=== PATIENT | male | born 1970 | race African-American/Black ===

== ENCOUNTER 2016-08-28 21:57 | Emergency (ER) | payer MEDICAID ==
[~2016-08-28] VITALS: Ht 185.4 cm; Wt 113.0 kg
[~2016-08-28 21:57] MED LIST: ABILIFY; RISPERDAL; SEROQUEL; ZOLOFT
[2016-08-28] MEDS ORDERED: ONDANSETRON HCL 4MG/2ML VIAL IV STA (22:33)
[2016-08-28] MEDS ORDERED: FOLIC ACID 1 MG, THIAMINE HCL 100 MG, MVI, ADULT NO.1 10 ML in DEXTROSE 5% WATER 1,000 ML IV ONE ×4 (22:45)
[2016-08-28 23:03] LABS: BASOPHILS % 1.5 % (0.0-2.0); EOSINOPHILS % 1.2 % (0.0-5.0); HEMATOCRIT. 41.8 % (42.0-52.0); HEMOGLOBIN. 13.7 g/dL (14.0-18.0); LYMPHOCYTES % 42.1 % (20.0-50.0); MEAN CORPUSCULAR HEMOGLOBIN 30.7 pg (28.0-32.0); MEAN CORPUSCULAR HGB CONC 32.8 g/dL (31.0-37.0); MEAN CORPUSCULAR VOLUME 93.9 fL (80.0-94.0); MEAN PLATELET VOLUME 8.2 fl (7.4-10.4); MONOCYTES % 7.4 % (2.0-8.0); NEUTROPHILS % 47.8 % (40.0-76.0); PLATELET 209 x1000/uL (130-400); RED BLOOD CELL COUNT 4.46 mill/uL (4.7-6.1); RED CELL DISTRIBUTION WIDTH 14.2 % (11.6-14.6); WHITE BLOOD COUNT 5.5 x1000/uL (4.5-11.0)
[2016-08-28 23:08] LABS: CHLORIDE 107 mEq/L (98-107); INDEX HEMOLYSI 2 (1-3); INDEX ICTERIC 1 (1-4); INDEX LIPEMIC 1 (1-3)
[2016-08-28 23:17] LABS: ALANINE AMINOTRANSFERASE 48 IU/L (13-61); ALBUMIN 3.8 g/dL (3.4-5.0); ANION GAP 16; CALCIUM 8.6 mg/dL (8.5-10.1); CARBON DIOXIDE 24 mEq/L (21-32); ETHANOL BLOOD 287 mg/dL; LIPASE 146 IU/L (73-393); UREA NITROGEN BLOOD 7 mg/dL (7-21); eGFR > 60 mL/min (>60)
[2016-08-29] MEDS ORDERED: ONDANSETRON 4MG ODT PO ONE (05:45)
[2016-08-29] MEDS ORDERED: LORAZEPAM 1MG TABLET PO ONE (06:15)
[2016-08-29] MEDS ORDERED: MAGNESIUM/ALUMINUM HYDROXIDE/SIMETHICONE 30ML UDC PO STA (07:29)
[2016-08-29] MEDS ORDERED: FAMOTIDINE 20MG TABLET PO ONE (07:30)
[2016-08-29] MEDS ORDERED: FAMOTIDINE 20MG/2ML VIAL IV ONE (08:30)
[2016-08-29] MEDS ORDERED: ONDANSETRON HCL 4MG/2ML VIAL IV ONE (08:30)
[2016-08-29] MEDS ORDERED: METOCLOPRAMIDE HCL 10MG/2ML VIAL IV ONE (11:45)
[2016-08-29 12:10] VITALS: BP 160/90
== END 2016-08-29 12:24 | disposition home or self-care (01) ==
LOC: ER 21:58
DX: K29.20 Alcoholic gastritis without bleeding (principal); F10.129 Alcohol abuse with intoxication, unspecified; R45.851 Suicidal ideations; R11.2 Nausea with vomiting, unspecified; F20.9 Schizophrenia, unspecified; F31.9 Bipolar disorder, unspecified
CPT/HCPCS: 36415; 80053; 80307; 80329; 83690; 85025; 96374; 96375; 99285; G0482; J2405; J2765; J3411; J3490; J7070; Q0162; Z7610

== ENCOUNTER 2016-10-08 05:05 | Emergency (ER) | payer MEDICAID ==
[~2016-10-08] VITALS: Ht 170.2 cm; Wt 82.0 kg
[2016-10-08] MEDS ORDERED: ONDANSETRON HCL 4MG/2ML VIAL IV STA (05:27)
[2016-10-08] MEDS ORDERED: SODIUM CHLORIDE 0.9% 1,000 ML IV ONE (05:27)
[2016-10-08] MEDS ORDERED: FAMOTIDINE 20MG/2ML VIAL IV STA (05:27)
[2016-10-08 06:00] LABS: EOSINOPHILS % 0.8 % (0.0-5.0); HEMATOCRIT. 42.5 % (42.0-52.0); HEMOGLOBIN. 14.1 g/dL (14.0-18.0); LYMPHOCYTES % 26.1 % (20.0-50.0); MEAN CORPUSCULAR HEMOGLOBIN 30.5 pg (28.0-32.0); MEAN CORPUSCULAR HGB CONC 33.1 g/dL (31.0-37.0); MEAN CORPUSCULAR VOLUME 92.2 fL (80.0-94.0); MEAN PLATELET VOLUME 8.6 fl (7.4-10.4); MONOCYTES % 7.3 % (2.0-8.0); NEUTROPHILS % 64.8 % (40.0-76.0); PLATELET 162 x1000/uL (130-400); RED BLOOD CELL COUNT 4.61 mill/uL (4.7-6.1); RED CELL DISTRIBUTION WIDTH 14.7 % (11.6-14.6); WHITE BLOOD COUNT 4.8 x1000/uL (4.5-11.0)
[2016-10-08 06:04] LABS: PROTHROMBIN TIME 10.9 sec
[2016-10-08 06:09] LABS: ANION GAP 17; CALCIUM 8.5 mg/dL (8.5-10.1); CARBON DIOXIDE 26 mEq/L (21-32); CHLORIDE 105 mEq/L (98-107); UREA NITROGEN BLOOD 5 mg/dL (7-21); eGFR > 60 mL/min (>60)
[2016-10-08 06:10] LABS: ALANINE AMINOTRANSFERASE 94 IU/L (13-61); ALBUMIN 4.1 g/dL (3.4-5.0); ETHANOL BLOOD 221 mg/dL; INDEX HEMOLYSI 2 (1-3); INDEX ICTERIC 1 (1-4); INDEX LIPEMIC 1 (1-3); LIPASE 142 IU/L (73-393)
[2016-10-08 06:11] LABS: ADD RBC MORPHOLOGY YES; DIFFERENTIAL COMMENT 1
[2016-10-08] MEDS ORDERED: KETOROLAC 60MG/2ML VIAL IM ONE (06:30)
[2016-10-08] MEDS ORDERED: ONDANSETRON 4MG ODT PO ONE (06:30)
[2016-10-08 06:37] VITALS: BP 162/81
[2016-10-08 07:39] LABS: PLATELET ESTIMATE NORMAL
== END 2016-10-08 07:26 | disposition home or self-care (01) ==
LOC: ER 05:06
DX: F10.129 Alcohol abuse with intoxication, unspecified (principal); R10.13 Epigastric pain; R11.2 Nausea with vomiting, unspecified; I10 Essential (primary) hypertension; F31.9 Bipolar disorder, unspecified; F20.9 Schizophrenia, unspecified; Z86.19 Personal history of other infectious and parasitic diseases
CPT/HCPCS: 36415; 80053; 83690; 85025; 85610; 96372; 99284; G0482; J1885; J2405; J3490; J7030; Z7610

== ENCOUNTER 2017-03-30 08:46 | Emergency (ER) | payer MEDICAID ==
[~2017-03-30] VITALS: Ht 180.3 cm; Wt 89.0 kg
[2017-03-30] MEDS ORDERED: KETOROLAC 30MG/ML VIAL IV STA (08:53)
[2017-03-30] MEDS ORDERED: SODIUM CHLORIDE 0.9% 1,000 ML IV ONE (08:53)
[2017-03-30] MEDS ORDERED: FAMOTIDINE 20MG/2ML VIAL IV STA (08:53)
[2017-03-30] MEDS ORDERED: ONDANSETRON HCL 4MG/2ML VIAL IV STA (08:53)
[2017-03-30 09:25] LABS: BASOPHILS % 0.8 % (0.0-2.0); EOSINOPHILS % 0.7 % (0.0-5.0); HEMATOCRIT. 42.1 % (42.0-52.0); HEMOGLOBIN. 13.8 g/dL (14.0-18.0); LYMPHOCYTES % 24.7 % (20.0-50.0); MEAN CORPUSCULAR HEMOGLOBIN 30.2 pg (28.0-32.0); MEAN CORPUSCULAR VOLUME 92.2 fL (80.0-94.0); MEAN PLATELET VOLUME 8.1 fl (7.4-10.4); MONOCYTES % 5.6 % (2.0-8.0); NEUTROPHILS % 68.2 % (40.0-76.0); PLATELET 219 x1000/uL (130-400); RED BLOOD CELL COUNT 4.56 mill/uL (4.7-6.1); RED CELL DISTRIBUTION WIDTH 15.4 % (11.6-14.6)
[2017-03-30 09:33] LABS: INR 1.1; PROTHROMBIN TIME 11.5 sec (9.4-11.6)
[2017-03-30 09:38] LABS: CARBON DIOXIDE 24 mEq/L (21-32); CHLORIDE 107 mEq/L (98-107); ETHANOL BLOOD 148 mg/dL
[2017-03-30 13:31] LABS: *AMPHETAMINES SCREEN URINE NEGATIVE (NEGATIVE); *BARBITURATES SCREEN URINE NEGATIVE (NEGATIVE); *BENZODIAZEPINES SCREEN URINE NEGATIVE (NEGATIVE); *COCAINE SCREEN URINE NEGATIVE (NEGATIVE); CANNABINOID URINE SCREEN NEGATIVE (NEGATIVE); METHADONE URINE SCREEN NEGATIVE (NEGATIVE); OPIATES URINE SCREEN NEGATIVE (NEGATIVE); PHENCYCLIDINE URINE SCREEN NEGATIVE (NEGATIVE)
[2017-03-30 13:48] VITALS: BP 157/96
== END 2017-03-30 15:10 | disposition home or self-care (01) ==
LOC: ER 08:53
DX: K29.20 Alcoholic gastritis without bleeding (principal); R45.851 Suicidal ideations
CPT/HCPCS: 36415; 74176; 80053; 80305; 80307; 80329; 83690; 85025; 85610; 96361; 96374; 96375; 99285; G0482; J1885; J2405; J3490; J7030; Z7610

== ENCOUNTER 2017-05-19 04:18 | Emergency (ER) | payer MEDICAID ==
[~2017-05-19] VITALS: Ht 177.8 cm; Wt 75.0 kg
[2017-05-19] MEDS ORDERED: ONDANSETRON HCL 4MG/2ML VIAL IV ONE (05:00)
[2017-05-19 05:37] LABS: BASOPHILS % 0.8 % (0.0-2.0); EOSINOPHILS % 1.3 % (0.0-5.0); HEMATOCRIT. 41.7 % (42.0-52.0); LYMPHOCYTES % 25.2 % (20.0-50.0); MEAN CORPUSCULAR HEMOGLOBIN 31.4 pg (28.0-32.0); MEAN CORPUSCULAR VOLUME 93.2 fL (80.0-94.0); MEAN PLATELET VOLUME 8.1 fl (7.4-10.4); MONOCYTES % 8.5 % (2.0-8.0); NEUTROPHILS % 64.2 % (40.0-76.0); PLATELET 220 x1000/uL (130-400); RED BLOOD CELL COUNT 4.47 mill/uL (4.7-6.1)
[2017-05-19 05:47] LABS: INR 1.1; PROTHROMBIN TIME 11.3 sec (9.4-11.6)
[2017-05-19 05:51] LABS: CARBON DIOXIDE 26 mEq/L (21-32); CHLORIDE 108 mEq/L (98-107); ETHANOL BLOOD 158 mg/dL
[2017-05-19 06:01] VITALS: BP 168/88
== END 2017-05-19 06:32 | disposition home or self-care (01) ==
LOC: ER 04:18
DX: F10.129 Alcohol abuse with intoxication, unspecified (principal); Y90.6 Blood alcohol level of 120-199 mg/100 ml
CPT/HCPCS: 36415; 80053; 83690; 85025; 85610; 96374; 99284; G0482; J2405; Z7610

== ENCOUNTER 2018-05-28 19:47 | Emergency (ER) | payer MEDICAID ==
[~2018-05-28] VITALS: Ht 185.4 cm; Wt 100.0 kg
[2018-05-28 19:53] VITALS: BP 134/76
== END 2018-05-28 20:50 | disposition left against medical advice (07) ==
LOC: ER 19:55
DX: Z53.21 Procedure and treatment not carried out due to patient leaving prior to being seen by health care provider (principal)

== ENCOUNTER 2018-05-28 22:31 | Emergency (ER) | payer MEDICAID ==
[~2018-05-28] VITALS: Ht 177.8 cm; Wt 100.0 kg
[2018-05-29] MEDS ORDERED: ONDANSETRON HCL 4MG/2ML INJ IV STA (06:55)
[2018-05-29] MEDS ORDERED: MORPHINE SULFATE 4 MG/ML CPJ (NOT FOR IM USE) IV STA (06:55)
[2018-05-29] MEDS ORDERED: SODIUM CHLORIDE 0.9% 1,000 ML IV ONE (10:16)
[2018-05-29 10:42] LABS: CLARITY URINE CLEAR (CLEAR); COLOR URINE YELLOW (YELLOW); KETONES URINE TRACE (NEGATIVE); LEUKOCYTE ESTERASE URINE NEGATIVE (NEGATIVE); NITRITE URINE NEGATIVE (NEGATIVE); OCCULT BLOOD URINE NEGATIVE (NEGATIVE); PROTEIN URINE NEGATIVE (NEGATIVE); SPECIFIC GRAVITY URINE 1.021 (1.005-1.030); UROBILINOGEN URINE 0.2 E.U./dL (0.2-1.0)
[2018-05-29] MEDS ORDERED: ONDANSETRON HCL 4MG/2ML INJ ONE (10:42)
[2018-05-29 11:24] LABS: *AMPHETAMINES SCREEN URINE NEGATIVE (NEGATIVE); *BARBITURATES SCREEN URINE NEGATIVE (NEGATIVE); *BENZODIAZEPINES SCREEN URINE NEGATIVE (NEGATIVE); *COCAINE SCREEN URINE NEGATIVE (NEGATIVE); METHADONE URINE SCREEN NEGATIVE (NEGATIVE); OPIATES URINE SCREEN NEGATIVE (NEGATIVE)
[2018-05-29 11:25] LABS: CANNABINOID URINE SCREEN NEGATIVE (NEGATIVE); PHENCYCLIDINE URINE SCREEN NEGATIVE (NEGATIVE)
[2018-05-29] MEDS ORDERED: MORPHINE SULFATE 4 MG/ML CPJ (NOT FOR IM USE) IV ONE (12:00)
[2018-05-29] MEDS ORDERED: MORPHINE SULFATE 10 MG/ML CPJ ONE (12:05)
[2018-05-29 12:31] LABS: BASOPHILS % 0.9 % (0.0-2.0); EOSINOPHILS % 2.5 % (0.0-5.0); HEMATOCRIT. 45.7 % (42.0-52.0); HEMOGLOBIN. 14.9 g/dL (14.0-18.0); LYMPHOCYTES % 15.6 % (20.0-50.0); MEAN CORPUSCULAR HEMOGLOBIN 30.6 pg (28.0-32.0); MEAN CORPUSCULAR VOLUME 94.1 fL (80.0-94.0); MEAN PLATELET VOLUME 8.9 fl (7.4-10.4); MONOCYTES % 5.8 % (2.0-8.0); NEUTROPHILS % 75.2 % (40.0-76.0); PLATELET 202 x1000/uL (130-400); RED BLOOD CELL COUNT 4.86 mill/uL (4.7-6.1); RED CELL DISTRIBUTION WIDTH 14.8 % (11.6-14.6)
[2018-05-29 12:39] LABS: CHLORIDE 115 mEq/L (98-107)
[2018-05-29 14:00] VITALS: BP 123/55
== END 2018-05-29 14:00 | disposition home or self-care (01) ==
LOC: ER 22:31
DX: R10.9 Unspecified abdominal pain (principal); R11.2 Nausea with vomiting, unspecified; R51 Headache; I10 Essential (primary) hypertension; F17.200 Nicotine dependence, unspecified, uncomplicated; Z79.899 Other long term (current) drug therapy
CPT/HCPCS: 36415; 74176; 80053; 80305; 81003; 83690; 85025; 96374; 96375; 99284; J2270; J2405; J7030

== ENCOUNTER 2018-06-15 21:58 | Emergency (ER) | payer MEDICAID ==
[~2018-06-15] VITALS: Ht 182.9 cm; Wt 86.0 kg
[2018-06-16 02:10] VITALS: BP 104/74
== END 2018-06-16 04:20 | disposition left against medical advice (07) ==
LOC: ER 21:58
DX: Z53.21 Procedure and treatment not carried out due to patient leaving prior to being seen by health care provider (principal)

== ENCOUNTER 2018-09-20 21:15 | Emergency (ER) | payer MEDICAID ==
[~2018-09-20] VITALS: Ht 185.4 cm; Wt 94.0 kg
[2018-09-20] MEDS ORDERED: SODIUM CHLORIDE 0.9% 1,000 ML IV ONE (22:49)
[2018-09-20] MEDS ORDERED: IBUPROFEN 600MG TABLET PO ONE (23:00)
[2018-09-20 23:23] LABS: BASOPHILS % 1.4 % (0.0-2.0); EOSINOPHILS % 1.5 % (0.0-5.0); HEMOGLOBIN. 12.7 g/dL (14.0-18.0); LYMPHOCYTES % 41.1 % (20.0-50.0); MEAN CORPUSCULAR VOLUME 92.7 fL (80.0-94.0); MEAN PLATELET VOLUME 7.7 fl (7.4-10.4); MONOCYTES % 7.2 % (2.0-8.0); NEUTROPHILS % 48.8 % (40.0-76.0); PLATELET 211 x1000/uL (130-400); RED CELL DISTRIBUTION WIDTH 15.6 % (11.6-14.6)
[2018-09-20 23:29] LABS: CHLORIDE 111 mEq/L (98-107); PROTHROMBIN TIME 10.1 sec (9.6-11.0)
[2018-09-20 23:32] LABS: ETHANOL BLOOD 264 mg/dL
[2018-09-20 23:42] LABS: CLARITY URINE CLEAR (CLEAR); COLOR URINE YELLOW (YELLOW); KETONES URINE NEGATIVE (NEGATIVE); LEUKOCYTE ESTERASE URINE NEGATIVE (NEGATIVE); NITRITE URINE NEGATIVE (NEGATIVE); OCCULT BLOOD URINE NEGATIVE (NEGATIVE); PH URINE 6.5 (4.5-8.0); PROTEIN URINE NEGATIVE (NEGATIVE); SPECIFIC GRAVITY URINE 1.017 (1.005-1.030)
[2018-09-20 23:54] LABS: *AMPHETAMINES SCREEN URINE NEGATIVE (NEGATIVE); *BARBITURATES SCREEN URINE NEGATIVE (NEGATIVE); *BENZODIAZEPINES SCREEN URINE PRESUMTIVE POSITIVE (NEGATIVE); *COCAINE SCREEN URINE NEGATIVE (NEGATIVE)
[2018-09-20 23:55] LABS: CANNABINOID URINE SCREEN NEGATIVE (NEGATIVE); METHADONE URINE SCREEN NEGATIVE (NEGATIVE); OPIATES URINE SCREEN NEGATIVE (NEGATIVE); PHENCYCLIDINE URINE SCREEN NEGATIVE (NEGATIVE)
[2018-09-21] MEDS ORDERED: SODIUM CHLORIDE 0.9% 1,000 ML IV ONE ×2 (05:44→08:30)
[2018-09-21] MEDS ORDERED: ONDANSETRON HCL 4MG/2ML INJ IV ONE (08:30)
[2018-09-21] MEDS ORDERED: LORAZEPAM 2MG/ML CPJ IV ONE (08:30)
[2018-09-21] MEDS ORDERED: CHLORDIAZEPOXIDE 25MG CAPSULE PO ONE (09:15)
[2018-09-21 11:32] VITALS: BP 157/106
== END 2018-09-21 11:36 | disposition home or self-care (01) ==
LOC: ER 21:39
DX: F10.129 Alcohol abuse with intoxication, unspecified (principal); Y90.8 Blood alcohol level of 240 mg/100 ml or more; E11.9 Type 2 diabetes mellitus without complications; F17.200 Nicotine dependence, unspecified, uncomplicated
CPT/HCPCS: 36415; 74176; 80053; 80305; 80320; 81003; 83690; 85025; 85610; 96374; 96375; 99284; J2060; J2405; J7030; Z7610; G0480

== ENCOUNTER 2018-09-22 03:07 | Emergency (ER) | payer MEDICAID ==
[~2018-09-22] VITALS: Ht 182.9 cm; Wt 91.0 kg
[2018-09-22] MEDS ORDERED: KETOROLAC 30MG/ML VIAL IV STA (06:46)
[2018-09-22 07:20] LABS: BASOPHILS % 0.8 % (0.0-2.0); HEMATOCRIT. 41.1 % (42.0-52.0); HEMOGLOBIN. 13.4 g/dL (14.0-18.0); LYMPHOCYTES % 51.7 % (20.0-50.0); MEAN CORPUSCULAR HEMOGLOBIN 30.9 pg (28.0-32.0); MEAN PLATELET VOLUME 8.1 fl (7.4-10.4); MONOCYTES % 8.5 % (2.0-8.0); PLATELET 162 x1000/uL (130-400); RED BLOOD CELL COUNT 4.32 mill/uL (4.7-6.1); RED CELL DISTRIBUTION WIDTH 15.9 % (11.6-14.6)
[2018-09-22 07:28] LABS: CLARITY URINE CLEAR (CLEAR); COLOR URINE YELLOW (YELLOW); KETONES URINE NEGATIVE (NEGATIVE); LEUKOCYTE ESTERASE URINE NEGATIVE (NEGATIVE); NITRITE URINE NEGATIVE (NEGATIVE); OCCULT BLOOD URINE NEGATIVE (NEGATIVE); PH URINE 5.5 (4.5-8.0); PROTEIN URINE NEGATIVE (NEGATIVE); SPECIFIC GRAVITY URINE 1.015 (1.005-1.030); UROBILINOGEN URINE 0.2 E.U./dL (0.2-1.0)
[2018-09-22 07:30] LABS: PROTHROMBIN TIME 10.5 sec (9.6-11.0)
[2018-09-22 07:59] LABS: CHLORIDE 114 mEq/L (98-107)
[2018-09-22 08:22] LABS: ETHANOL BLOOD 284 mg/dL
[2018-09-22 09:00] VITALS: BP 105/61
== END 2018-09-22 10:49 | disposition home or self-care (01) ==
LOC: ER 03:07
DX: F10.129 Alcohol abuse with intoxication, unspecified (principal); Y90.8 Blood alcohol level of 240 mg/100 ml or more; R10.0 Acute abdomen
CPT/HCPCS: 36415; 80053; 80320; 81003; 83690; 85025; 85610; 96374; 99283; J1885; G0480

== ENCOUNTER 2018-09-28 23:35 | Emergency (ER) | payer MEDICAID ==
[~2018-09-28] VITALS: Ht 182.9 cm; Wt 95.0 kg
[2018-09-28 23:40] VITALS: BP 158/92
== END 2018-09-29 02:55 | disposition left against medical advice (07) ==
LOC: ER 23:35
DX: R10.9 Unspecified abdominal pain (principal); Z53.21 Procedure and treatment not carried out due to patient leaving prior to being seen by health care provider

== ENCOUNTER 2018-09-29 20:59 | Emergency (ER) | payer MEDICAID ==
[~2018-09-29] VITALS: Ht 185.4 cm; Wt 95.0 kg
[2018-09-29 21:14] VITALS: BP 148/89
== END 2018-09-30 00:01 | disposition left against medical advice (07) ==
LOC: ER 20:59
DX: R10.9 Unspecified abdominal pain (principal); Z53.21 Procedure and treatment not carried out due to patient leaving prior to being seen by health care provider

== ENCOUNTER 2018-09-30 00:04 | Emergency (ER) | payer MEDICAID ==
[~2018-09-30] VITALS: Ht 170.2 cm; Wt 81.0 kg
[2018-09-30 00:14] VITALS: BP 186/101
== END 2018-09-30 06:00 | disposition left against medical advice (07) ==
LOC: ER 00:04
DX: R10.9 Unspecified abdominal pain (principal); Z53.21 Procedure and treatment not carried out due to patient leaving prior to being seen by health care provider

== ENCOUNTER 2018-10-02 23:55 | Emergency (ER) | payer MEDICAID ==
[~2018-10-02] VITALS: Ht 175.3 cm; Wt 86.0 kg
[2018-10-03 00:15] VITALS: BP 166/111
== END 2018-10-03 02:41 | disposition left against medical advice (07) ==
LOC: ER 23:55
DX: R10.9 Unspecified abdominal pain (principal); Z53.21 Procedure and treatment not carried out due to patient leaving prior to being seen by health care provider

== ENCOUNTER 2018-11-08 23:56 | Emergency (ER) | payer MEDICAID ==
[~2018-11-08] VITALS: Ht 185.4 cm; Wt 86.0 kg
[2018-11-09 00:03] VITALS: BP 107/44
== END 2018-11-09 00:15 | disposition left against medical advice (07) ==
LOC: ER 23:56
DX: R10.9 Unspecified abdominal pain (principal); Z53.21 Procedure and treatment not carried out due to patient leaving prior to being seen by health care provider

== ENCOUNTER 2018-11-09 21:16 | Emergency (ER) | payer MEDICAID ==
[~2018-11-09] VITALS: Ht 175.3 cm; Wt 82.0 kg
[2018-11-09 21:23] VITALS: BP 126/84
== END 2018-11-09 22:30 | disposition left against medical advice (07) ==
LOC: ER 21:16
DX: Z53.21 Procedure and treatment not carried out due to patient leaving prior to being seen by health care provider (principal)

== ENCOUNTER 2018-12-04 00:17 | Emergency (ER) | payer MEDICAID ==
[~2018-12-04] VITALS: Ht 180.3 cm; Wt 80.0 kg
[2018-12-04] MEDS ORDERED: ONDANSETRON HCL 4MG/2ML INJ IV STA ×2 (04:15→06:27)
[2018-12-04] MEDS ORDERED: FAMOTIDINE 20MG/2ML VIAL IV STA (04:15)
[2018-12-04] MEDS ORDERED: SODIUM CHLORIDE 0.9% 1,000 ML IV ONE ×2 (04:15)
[2018-12-04] MEDS ORDERED: KETOROLAC 30MG/ML VIAL IV STA (04:15)
[2018-12-04 04:57] LABS: BASOPHILS % 0.5 % (0.0-2.0); EOSINOPHILS % 1.7 % (0.0-5.0); HEMATOCRIT. 39.6 % (42.0-52.0); HEMOGLOBIN. 13.2 g/dL (14.0-18.0); LYMPHOCYTES % 45.8 % (20.0-50.0); MEAN CORPUSCULAR HEMOGLOBIN 31.8 pg (28.0-32.0); MEAN CORPUSCULAR VOLUME 95.1 fL (80.0-94.0); MEAN PLATELET VOLUME 7.6 fl (7.4-10.4); MONOCYTES % 9.2 % (2.0-8.0); NEUTROPHILS % 42.8 % (40.0-76.0); PLATELET 221 x1000/uL (130-400); RED BLOOD CELL COUNT 4.17 mill/uL (4.7-6.1); RED CELL DISTRIBUTION WIDTH 16.6 % (11.6-14.6)
[2018-12-04 05:08] LABS: CHLORIDE 110 mEq/L (98-107)
[2018-12-04 05:12] LABS: ETHANOL BLOOD 278 mg/dL
[2018-12-04] MEDS ORDERED: ACETAMINOPHEN 325MG TABLET PO STA (06:27)
[2018-12-04 09:15] VITALS: BP 127/65
== END 2018-12-04 09:38 | disposition home or self-care (01) ==
LOC: ER 00:39
DX: R10.84 Generalized abdominal pain (principal); F10.229 Alcohol dependence with intoxication, unspecified; Y90.8 Blood alcohol level of 240 mg/100 ml or more
CPT/HCPCS: 36415; 80053; 80320; 83690; 85025; 96361; 96374; 96375; 96376; 99283; J1885; J2405; J3490; J7030; Z7610; G0480

== ENCOUNTER 2018-12-13 08:15 | Emergency (ER) | payer MEDICAID ==
[~2018-12-13] VITALS: Ht 175.3 cm; Wt 82.0 kg
[2018-12-13] MEDS ORDERED: FAMOTIDINE 20MG/2ML VIAL IV STA (08:24)
[2018-12-13] MEDS ORDERED: ONDANSETRON HCL 4MG/2ML INJ IV STA (08:24)
[2018-12-13] MEDS ORDERED: SODIUM CHLORIDE 0.9% 1,000 ML IV ONE (08:24)
[2018-12-13 08:51] LABS: BASOPHILS % 0.9 % (0.0-2.0); EOSINOPHILS % 0.7 % (0.0-5.0); HEMATOCRIT. 37.4 % (42.0-52.0); HEMOGLOBIN. 12.5 g/dL (14.0-18.0); LYMPHOCYTES % 27.8 % (20.0-50.0); MEAN CORPUSCULAR HEMOGLOBIN 31.7 pg (28.0-32.0); MEAN CORPUSCULAR VOLUME 94.8 fL (80.0-94.0); MEAN PLATELET VOLUME 7.6 fl (7.4-10.4); MONOCYTES % 13.5 % (2.0-8.0); NEUTROPHILS % 57.1 % (40.0-76.0); PLATELET 160 x1000/uL (130-400); RED BLOOD CELL COUNT 3.94 mill/uL (4.7-6.1); RED CELL DISTRIBUTION WIDTH 16.3 % (11.6-14.6)
[2018-12-13 08:54] LABS: CHLORIDE 108 mEq/L (98-107)
[2018-12-13 08:58] LABS: ETHANOL BLOOD 139 mg/dL
[2018-12-13 10:46] LABS: CLARITY URINE CLEAR (CLEAR); COLOR URINE YELLOW (YELLOW); KETONES URINE 1+ (NEGATIVE); LEUKOCYTE ESTERASE URINE NEGATIVE (NEGATIVE); NITRITE URINE NEGATIVE (NEGATIVE); OCCULT BLOOD URINE NEGATIVE (NEGATIVE); PH URINE 5.5 (4.5-8.0); PROTEIN URINE 1+ (NEGATIVE); SPECIFIC GRAVITY URINE 1.031 (1.005-1.030)
[2018-12-13 11:09] LABS: *COCAINE SCREEN URINE NEGATIVE (NEGATIVE); METHADONE URINE SCREEN NEGATIVE (NEGATIVE); OPIATES URINE SCREEN NEGATIVE (NEGATIVE)
[2018-12-13 11:10] LABS: *AMPHETAMINES SCREEN URINE NEGATIVE (NEGATIVE); *BARBITURATES SCREEN URINE NEGATIVE (NEGATIVE); *BENZODIAZEPINES SCREEN URINE PRESUMTIVE POSITIVE (NEGATIVE); CANNABINOID URINE SCREEN NEGATIVE (NEGATIVE); PHENCYCLIDINE URINE SCREEN NEGATIVE (NEGATIVE)
[2018-12-13 11:44] VITALS: BP 150/90
== END 2018-12-13 11:47 | disposition home or self-care (01) ==
LOC: ER 08:40
DX: R10.0 Acute abdomen (principal); R11.10 Vomiting, unspecified; R03.0 Elevated blood-pressure reading, without diagnosis of hypertension; F20.9 Schizophrenia, unspecified
CPT/HCPCS: 36415; 80053; 80305; 80307; 80320; 80329; 81003; 83690; 85025; 85610; 96374; 96375; 99283; J2405; J3490; J7030; Z7610; G0480

== ENCOUNTER 2019-01-20 22:48 | Emergency (ER) | payer MEDICAID | END 2019-01-20 23:05 | disposition left against medical advice (07) | LOC: ER 22:48 | DX: R10.9 Unspecified abdominal pain (principal); F10.129 Alcohol abuse with intoxication, unspecified; Y90.9 Presence of alcohol in blood, level not specified; Z53.21 Procedure and treatment not carried out due to patient leaving prior to being seen by health care provider ==

== ENCOUNTER 2019-02-01 21:35 | Emergency (ER) | payer MEDICAID | END 2019-02-01 21:44 | disposition left against medical advice (07) | LOC: ER 21:35 | DX: R10.9 Unspecified abdominal pain (principal); Z53.21 Procedure and treatment not carried out due to patient leaving prior to being seen by health care provider ==

== ENCOUNTER 2019-02-02 21:15 | Emergency (ER) | payer MEDICAID | END 2019-02-02 21:54 | disposition left against medical advice (07) | LOC: ER 21:15 | DX: Z53.21 Procedure and treatment not carried out due to patient leaving prior to being seen by health care provider (principal) ==

== ENCOUNTER 2019-02-07 22:26 | Emergency (ER) | payer MEDICAID ==
[~2019-02-07] VITALS: Ht 172.7 cm; Wt 82.0 kg
[2019-02-07 22:30] VITALS: BP 141/98
== END 2019-02-08 02:30 | disposition left against medical advice (07) ==
LOC: ER 22:26
DX: F10.10 Alcohol abuse, uncomplicated (principal); Z53.21 Procedure and treatment not carried out due to patient leaving prior to being seen by health care provider

== ENCOUNTER 2019-02-09 00:22 | Emergency (ER) | payer MEDICAID ==
[~2019-02-09] VITALS: Ht 182.9 cm; Wt 91.0 kg
[2019-02-09 00:24] VITALS: BP 160/79
== END 2019-02-09 00:45 | disposition left against medical advice (07) ==
LOC: ER 00:22
DX: Z53.21 Procedure and treatment not carried out due to patient leaving prior to being seen by health care provider (principal)

== ENCOUNTER 2019-03-09 23:03 | Emergency (ER) | payer MEDICAID ==
[~2019-03-09] VITALS: Ht 172.7 cm; Wt 86.0 kg
[2019-03-10] MEDS ORDERED: FAMOTIDINE 20MG/2ML VIAL IV ONE (04:00)
[2019-03-10 04:23] LABS: CHLORIDE 109 mEq/L (98-107)
[2019-03-10 04:27] LABS: ETHANOL BLOOD 261 mg/dL
[2019-03-10 04:29] LABS: BASOPHILS % 1.3 % (0.0-2.0); EOSINOPHILS % 2.5 % (0.0-5.0); HEMATOCRIT. 41.2 % (42.0-52.0); HEMOGLOBIN. 13.6 g/dL (14.0-18.0); LYMPHOCYTES % 46.2 % (20.0-50.0); MEAN CORPUSCULAR HEMOGLOBIN 31.8 pg (28.0-32.0); MEAN PLATELET VOLUME 8.2 fl (7.4-10.4); MONOCYTES % 11.9 % (2.0-8.0); NEUTROPHILS % 38.1 % (40.0-76.0); PLATELET 183 x1000/uL (130-400); RED CELL DISTRIBUTION WIDTH 15.3 % (11.6-14.6)
[2019-03-10 04:35] LABS: PROTHROMBIN TIME 10.7 sec (9.6-11.0)
[2019-03-10] MEDS ORDERED: FAMOTIDINE 20MG TABLET PO ONE (06:30)
[2019-03-10] MEDS ORDERED: CHLORDIAZEPOXIDE 25MG CAPSULE PO ONE (08:15)
[2019-03-10 08:45] VITALS: BP 145/83
== END 2019-03-10 08:45 | disposition home or self-care (01) ==
LOC: ER 23:19
DX: K29.20 Alcoholic gastritis without bleeding (principal); F10.10 Alcohol abuse, uncomplicated; I10 Essential (primary) hypertension; Z79.899 Other long term (current) drug therapy; Y90.9 Presence of alcohol in blood, level not specified
CPT/HCPCS: 36415; 80320; 99283; G0480

== ENCOUNTER 2019-05-28 00:27 | Inpatient (IN) | payer MEDICAID ==
[~2019-05-28] VITALS: Ht 182.9 cm; Wt 109.3 kg
[2019-05-28] MEDS ORDERED: ONDANSETRON HCL 4MG/2ML INJ IV STA (01:15)
[2019-05-28] MEDS ORDERED: SODIUM CHLORIDE 0.9% 1,000 ML IV ONE (01:15)
[2019-05-28] MEDS ORDERED: KETOROLAC 30MG/ML VIAL IV STA (02:31)
[2019-05-28 03:27] LABS: CLARITY URINE CLEAR (CLEAR); COLOR URINE YELLOW (YELLOW); KETONES URINE NEGATIVE (NEGATIVE); LEUKOCYTE ESTERASE URINE NEGATIVE (NEGATIVE); NITRITE URINE NEGATIVE (NEGATIVE); OCCULT BLOOD URINE NEGATIVE (NEGATIVE); PROTEIN URINE NEGATIVE (NEGATIVE); SPECIFIC GRAVITY URINE 1.009 (1.005-1.030); UROBILINOGEN URINE 0.2 E.U./dL (0.2-1.0)
[2019-05-28 04:02] LABS: *AMPHETAMINES SCREEN URINE NEGATIVE (NEGATIVE); *BARBITURATES SCREEN URINE NEGATIVE (NEGATIVE); *BENZODIAZEPINES SCREEN URINE NEGATIVE (NEGATIVE); *COCAINE SCREEN URINE NEGATIVE (NEGATIVE); METHADONE URINE SCREEN NEGATIVE (NEGATIVE); OPIATES URINE SCREEN NEGATIVE (NEGATIVE)
[2019-05-28 04:03] LABS: CANNABINOID URINE SCREEN NEGATIVE (NEGATIVE); PHENCYCLIDINE URINE SCREEN NEGATIVE (NEGATIVE)
[2019-05-28 04:10] LABS: BASOPHILS % 0.6 % (0.0-2.0); EOSINOPHILS % 0.7 % (0.0-5.0); HEMOGLOBIN. 14.5 g/dL (14.0-18.0); LYMPHOCYTES % 31.9 % (20.0-50.0); MEAN CORPUSCULAR VOLUME 94.1 fL (80.0-94.0); MEAN PLATELET VOLUME 8.8 fl (7.4-10.4); MONOCYTES % 5.3 % (2.0-8.0); NEUTROPHILS % 61.5 % (40.0-76.0); PLATELET 238 x1000/uL (130-400); RED BLOOD CELL COUNT 4.68 mill/uL (4.7-6.1); RED CELL DISTRIBUTION WIDTH 14.4 % (11.6-14.6)
[2019-05-28 04:13] LABS: CHLORIDE 112 mEq/L (98-107); INR 1.1; PROTHROMBIN TIME 11.5 sec (9.6-11.0)
[2019-05-28] MEDS ORDERED: METRONIDAZOLE 500 MG PREMIX 100 ML IV ONE (05:15)
[2019-05-28] MEDS ORDERED: PIPERACILLIN/TAZ 3.375G PREMIX 50 ML IV ONE (05:15)
[2019-05-28] MEDS ORDERED: SODIUM CHLORIDE 0.9% 1000ML BAG (SEPSIS BOLUS) IV ONE (05:15)
[2019-05-28] MEDS ORDERED: MORPHINE SULFATE 4 MG/ML CPJ (NOT FOR IM USE) IV ONE (06:00)
[2019-05-28] MEDS ORDERED: ONDANSETRON HCL 4MG/2ML INJ IV ONE (06:00)
[2019-05-28] MEDS ORDERED: ONDANSETRON HCL 4MG/2ML INJ IV PRN (10:45)
[2019-05-28] MEDS ORDERED: LORAZEPAM 2MG/ML CPJ IV PRN (10:45)
[2019-05-28] MEDS ORDERED: DIPHENHYDRAMINE 50MG/ML VIAL IV PRN (10:45)
[2019-05-28] MEDS ORDERED: ACETAMINOPHEN 650MG SUPP PR PRN (10:45)
[2019-05-28] MEDS ORDERED: IPRATROPIUM/ALBUTEROL 0.5-3(2.5)MG/3ML NEB NEB PRN (10:45)
[2019-05-28] MEDS: DEXT 5%/0.45% NACL KCL 10MEQ/L 1,000 ML IV SCH ×2 (11:54→21:56)
[2019-05-28] MEDS: FAMOTIDINE 20MG/2ML VIAL IV SCH (11:55)
[2019-05-28] MEDS: MORPHINE SULFATE 2 MG/ML CPJ (NOT FOR IM USE) IV PRN ×3 (11:55→21:56)
[2019-05-28] MEDS ORDERED: POTASSIUM CHLORIDE INJ 40 MEQ in DEXT 5% WATER 250 ML IV SCH (12:00)
[2019-05-28] MEDS ORDERED: PIPERACILLIN/TAZOBACTAM 3.375 G in DEXT 5% WATER 100 ML IV SCH (12:00)
[2019-05-28] MEDS ORDERED: CHLORDIAZEPOXIDE 25MG CAPSULE PO PRN (15:15)
[2019-05-28 16:45] LABS: HEPATITIS B SURFACE ANTIGEN NEGATIVE
[2019-05-28 16:57] VITALS: BP 152/92
[2019-05-28] MEDS ORDERED: SERT100T MT (17:03)
[2019-05-28] MEDS ORDERED: QUET300T2 PO (17:03)
[2019-05-28 17:15] LABS: HEPATITIS A AB IGM NEGATIVE (NEGATIVE)
[2019-05-28 17:30] VITALS: BP 152/92
[2019-05-28] MEDS: MULTIVITAMINS,THER W-MINERALS TABLET PO SCH (17:35)
[2019-05-28] MEDS: THIAMINE HCL 100MG TABLET PO SCH (17:35)
[2019-05-28] MEDS: FOLIC ACID 1MG TABLET PO SCH (17:35)
[2019-05-28 20:00] VITALS: BP 161/80
[2019-05-28] MEDS: PIPERACILLIN/TAZOBACTAM 3.375 G in DEXT 5% WATER 100 ML IV SCH (21:08)
[2019-05-28] MEDS: QUETIAPINE FUMARATE 50MG TABLET PO SCH (22:50)
[2019-05-29] VITALS: BP 148/101
[2019-05-29] MEDS: PIPERACILLIN/TAZOBACTAM 3.375 G in DEXT 5% WATER 100 ML IV SCH ×4 (03:36→20:04)
[2019-05-29 04:00] VITALS: BP 143/87
[2019-05-29] MEDS: MORPHINE SULFATE 2 MG/ML CPJ (NOT FOR IM USE) IV PRN ×3 (06:46→20:04)
[2019-05-29 07:07] LABS: BASOPHILS % 0.7 % (0.0-2.0); EOSINOPHILS % 3.3 % (0.0-5.0); HEMATOCRIT. 41.2 % (42.0-52.0); HEMOGLOBIN. 13.6 g/dL (14.0-18.0); LYMPHOCYTES % 33.3 % (20.0-50.0); MEAN CORPUSCULAR HEMOGLOBIN 30.8 pg (28.0-32.0); MEAN CORPUSCULAR VOLUME 93.5 fL (80.0-94.0); MEAN PLATELET VOLUME 8.8 fl (7.4-10.4); MONOCYTES % 9.1 % (2.0-8.0); NEUTROPHILS % 53.6 % (40.0-76.0); PLATELET 212 x1000/uL (130-400); RED BLOOD CELL COUNT 4.41 mill/uL (4.7-6.1); RED CELL DISTRIBUTION WIDTH 14.1 % (11.6-14.6)
[2019-05-29 07:18] LABS: CHLORIDE 108 mEq/L (98-107)
[2019-05-29 07:30] LABS: HDL CHOLESTEROL 46 mg/dL (40-59); LDL CHOLESTEROL 104 mg/dL (5-100); T4 FREE 0.71 ng/dL (0.76-1.46)
[2019-05-29 08:00] VITALS: BP 143/77
[2019-05-29] MEDS: MULTIVITAMINS,THER W-MINERALS TABLET PO SCH (08:59)
[2019-05-29] MEDS: FAMOTIDINE 20MG/2ML VIAL IV SCH (08:59)
[2019-05-29] MEDS: QUETIAPINE FUMARATE 50MG TABLET PO SCH ×2 (09:00→17:37)
[2019-05-29] MEDS: FOLIC ACID 1MG TABLET PO SCH (09:00)
[2019-05-29] MEDS: THIAMINE HCL 100MG TABLET PO SCH (09:00)
[2019-05-29] MEDS: DEXT 5%/0.45% NACL KCL 10MEQ/L 1,000 ML IV SCH ×2 (09:02→14:48)
[2019-05-29 12:00] VITALS: BP 146/74
[2019-05-29] MEDS: CHLORDIAZEPOXIDE 25MG CAPSULE PO SCH ×2 (14:48→21:35)
[2019-05-29 16:00] VITALS: BP 160/86
[2019-05-29 20:00] VITALS: BP 162/87
[2019-05-29] MEDS ORDERED: QUETIAPINE FUMARATE 50MG TABLET PO SCH (22:30)
[2019-05-30] VITALS (7 sets, daily range): BP systolic 132–171; BP diastolic 74–95
[2019-05-30] MEDS: DEXT 5%/0.45% NACL KCL 10MEQ/L 1,000 ML IV SCH (00:10)
[2019-05-30] MEDS: MORPHINE SULFATE 2 MG/ML CPJ (NOT FOR IM USE) IV PRN ×3 (00:58→22:28)
[2019-05-30] MEDS: PIPERACILLIN/TAZOBACTAM 3.375 G in DEXT 5% WATER 100 ML IV SCH ×4 (03:59→22:27)
[2019-05-30] MEDS: CHLORDIAZEPOXIDE 25MG CAPSULE PO SCH ×3 (06:40→22:27)
[2019-05-30] MEDS: FAMOTIDINE 20MG/2ML VIAL IV SCH (09:37)
[2019-05-30] MEDS: FOLIC ACID 1MG TABLET PO SCH (09:38)
[2019-05-30] MEDS: QUETIAPINE FUMARATE 50MG TABLET PO SCH ×3 (09:38→22:27)
[2019-05-30] MEDS: THIAMINE HCL 100MG TABLET PO SCH (09:38)
[2019-05-30] MEDS: MULTIVITAMINS,THER W-MINERALS TABLET PO SCH (09:39)
[2019-05-30 09:57] LABS: HEMATOCRIT. 42.2 % (42.0-52.0); HEMOGLOBIN. 14.1 g/dL (14.0-18.0); MEAN CORPUSCULAR HEMOGLOBIN 30.9 pg (28.0-32.0); MEAN CORPUSCULAR VOLUME 92.9 fL (80.0-94.0); MEAN PLATELET VOLUME 8.6 fl (7.4-10.4); PLATELET 208 x1000/uL (130-400); RED BLOOD CELL COUNT 4.55 mill/uL (4.7-6.1); RED CELL DISTRIBUTION WIDTH 14.2 % (11.6-14.6)
[2019-05-30 10:10] LABS: CHLORIDE 107 mEq/L (98-107)
[2019-05-30 11:44] LABS: PLATELET ESTIMATE NORMAL
[2019-05-30] MEDS ORDERED: CLONIDINE 0.1MG TABLET PO NR (17:00)
[2019-05-30] MEDS ORDERED: FAMO-135 PO (19:24)
[2019-05-30] MEDS ORDERED: AMLO5TAB4 MT (19:24)
[2019-05-30] MEDS ORDERED: FOLI-43 MT (19:24)
[2019-05-30] MEDS ORDERED: MULT-1116 MT (19:24)
[2019-05-30] MEDS ORDERED: THIA50TA11 MT (19:24)
[2019-05-30] MEDS: AMLODIPINE 5MG TABLET PO SCH (19:30)
[2019-05-30] MEDS: HYDRALAZINE HCL 25MG TABLET PO SCH (22:00)
[2019-05-31] VITALS: BP 137/84
[2019-05-31] MEDS: PIPERACILLIN/TAZOBACTAM 3.375 G in DEXT 5% WATER 100 ML IV SCH ×3 (03:00→14:33)
[2019-05-31 04:00] VITALS: BP 116/67
[2019-05-31] MEDS: CHLORDIAZEPOXIDE 25MG CAPSULE PO SCH ×2 (06:56→13:54)
[2019-05-31] MEDS: HYDRALAZINE HCL 25MG TABLET PO SCH ×2 (06:56→13:58)
[2019-05-31 07:20] LABS: HEMATOCRIT 43.1 % (42.0-52.0); HEMOGLOBIN 14.5 g/dL (14.0-18.0); MEAN CORPUSCULAR HEMOGLOBIN 31.2 pg (28.0-32.0); MEAN CORPUSCULAR VOLUME 92.9 fL (80.0-94.0); PLATELET 193 x1000/uL (130-400); RED BLOOD CELL COUNT 4.64 mill/uL (4.7-6.1)
[2019-05-31 07:23] LABS: CHLORIDE 108 mEq/L (98-107)
[2019-05-31 08:00] VITALS: BP 110/58
[2019-05-31] MEDS: AMLODIPINE 5MG TABLET PO SCH (09:00)
[2019-05-31] MEDS ORDERED: FAMOTIDINE 20MG TABLET PO SCH (09:00)
[2019-05-31] MEDS: MULTIVITAMINS,THER W-MINERALS TABLET PO SCH (09:53)
[2019-05-31] MEDS: FOLIC ACID 1MG TABLET PO SCH (09:54)
[2019-05-31] MEDS: QUETIAPINE FUMARATE 50MG TABLET PO SCH (09:54)
[2019-05-31] MEDS: THIAMINE HCL 100MG TABLET PO SCH (09:54)
[2019-05-31] MEDS: MORPHINE SULFATE 2 MG/ML CPJ (NOT FOR IM USE) IV PRN (09:56)
[2019-05-31 12:00] VITALS: BP 116/80
[2019-05-31 14:35] VITALS: BP 116/80
== END 2019-05-31 15:00 | disposition home or self-care (01) | DRG 241 ==
LOC: ER 00:40 → 5WST 06:16 → SUPCPDRO 13:55 → ENRESERV 15:22
PROVIDERS: ADMIT Internal Medicine; ATTEND Internal Medicine
DX: K29.20 Alcoholic gastritis without bleeding (principal); I50.33 Acute on chronic diastolic (congestive) heart failure; K55.9 Vascular disorder of intestine, unspecified; E87.2 Acidosis; E86.0 Dehydration; F20.9 Schizophrenia, unspecified; I11.0 Hypertensive heart disease with heart failure; E87.6 Hypokalemia; F17.210 Nicotine dependence, cigarettes, uncomplicated; F31.9 Bipolar disorder, unspecified; K63.89 Other specified diseases of intestine; R73.9 Hyperglycemia, unspecified; F10.20 Alcohol dependence, uncomplicated; Y90.8 Blood alcohol level of 240 mg/100 ml or more; Z71.6 Tobacco abuse counseling; Z91.19 Patient's noncompliance with other medical treatment and regimen
CPT/HCPCS: 36415; 71045; 74176; 80048; 80061; 80305; 80320; 81003; 82140; 83605; 84145; 84439; 84443; 84484; 85027; 86705; 86709; 86803; 87340; 93005; 93306; 93970; 96365; 96366; 96368; 96375; 96376; 99285; J1885; J2270; J2405; J2543; J3480; J3490; J7030; J7040; J7060; G0480

== ENCOUNTER 2019-07-23 02:33 | Emergency (ER) | payer MEDICAID ==
[~2019-07-23] VITALS: Ht 188 cm; Wt 84.0 kg
[~2019-07-23 02:33] MED LIST changes: -ABILIFY; +AMLO5TAB4 MT; +FAMO-135 PO; +FOLI-43 MT; +MULT-1116 MT; +QUET300T2 PO; -RISPERDAL; -SEROQUEL; +SERT100T MT; +THIA50TA11 MT; -ZOLOFT
[2019-07-23] MEDS ORDERED: SODIUM CHLORIDE 0.9% 1,000 ML IV ONE ×2 (05:06→08:27)
[2019-07-23 06:06] LABS: CHLORIDE 114 mEq/L (98-107)
[2019-07-23] MEDS ORDERED: ONDANSETRON HCL 4MG/2ML INJ IV STA (08:27)
[2019-07-23] MEDS ORDERED: KETOROLAC 30MG/ML VIAL IV STA (08:27)
[2019-07-23 09:05] LABS: BASOPHILS % 1.1 % (0.0-2.0); EOSINOPHILS % 1.2 % (0.0-5.0); HEMATOCRIT. 40.8 % (42.0-52.0); HEMOGLOBIN. 13.4 g/dL (14.0-18.0); LYMPHOCYTES % 41.2 % (20.0-50.0); MEAN CORPUSCULAR HEMOGLOBIN 31.1 pg (28.0-32.0); MEAN CORPUSCULAR VOLUME 94.9 fL (80.0-94.0); MEAN PLATELET VOLUME 7.3 fl (7.4-10.4); MONOCYTES % 8.3 % (2.0-8.0); NEUTROPHILS % 48.2 % (40.0-76.0); PLATELET 202 x1000/uL (130-400)
[2019-07-23 09:53] LABS: CLARITY URINE CLEAR (CLEAR); COLOR URINE YELLOW (YELLOW); KETONES URINE NEGATIVE (NEGATIVE); LEUKOCYTE ESTERASE URINE NEGATIVE (NEGATIVE); NITRITE URINE NEGATIVE (NEGATIVE); OCCULT BLOOD URINE NEGATIVE (NEGATIVE); PH URINE 5.5 (4.5-8.0); PROTEIN URINE NEGATIVE (NEGATIVE); SPECIFIC GRAVITY URINE 1.019 (1.005-1.030); UROBILINOGEN URINE 0.2 E.U./dL (0.2-1.0)
[2019-07-23 10:29] VITALS: BP 149/93
== END 2019-07-23 10:31 | disposition home or self-care (01) ==
LOC: ER 02:33
DX: F10.129 Alcohol abuse with intoxication, unspecified (principal); R11.0 Nausea; I10 Essential (primary) hypertension; F17.200 Nicotine dependence, unspecified, uncomplicated; Z79.899 Other long term (current) drug therapy; Y90.8 Blood alcohol level of 240 mg/100 ml or more
CPT/HCPCS: 36415; 80053; 80320; 81003; 85025; 99283; J7030; G0480

== ENCOUNTER 2019-08-21 21:16 | Emergency (ER) | payer MEDICAID ==
[~2019-08-21] VITALS: Ht 172.7 cm; Wt 95.0 kg
[2019-08-22] MEDS ORDERED: ONDANSETRON 4MG ODT PO STA (00:32)
[2019-08-22] MEDS ORDERED: VISCOUS LIDOCAINE 2% 15 ML UDC PO ONE (00:45)
[2019-08-22] MEDS ORDERED: FAMOTIDINE 20MG TABLET PO ONE (00:45)
[2019-08-22] MEDS ORDERED: MAGNESIUM/ALUMINUM HYDROXIDE/SIMETHICONE 30ML UDC PO ONE (00:45)
[2019-08-22 01:04] LABS: BASOPHILS % 0.8 % (0.0-2.0); EOSINOPHILS % 0.6 % (0.0-5.0); HEMATOCRIT. 48.4 % (42.0-52.0); HEMOGLOBIN. 16.1 g/dL (14.0-18.0); LYMPHOCYTES % 35.3 % (20.0-50.0); MEAN CORPUSCULAR HEMOGLOBIN 31.4 pg (28.0-32.0); MEAN CORPUSCULAR VOLUME 94.6 fL (80.0-94.0); MEAN PLATELET VOLUME 8.2 fl (7.4-10.4); MONOCYTES % 5.2 % (2.0-8.0); NEUTROPHILS % 58.1 % (40.0-76.0); PLATELET 250 x1000/uL (130-400); RED BLOOD CELL COUNT 5.12 mill/uL (4.7-6.1)
[2019-08-22 02:22] LABS: CHLORIDE 110 mEq/L (98-107)
[2019-08-22 02:30] LABS: ETHANOL BLOOD 251 mg/dL
[2019-08-22 03:15] VITALS: BP 146/85
== END 2019-08-21 22:14 | disposition home or self-care (01) ==
LOC: ER 21:16
DX: K29.20 Alcoholic gastritis without bleeding (principal); F10.20 Alcohol dependence, uncomplicated; I10 Essential (primary) hypertension; Z79.899 Other long term (current) drug therapy; Y90.8 Blood alcohol level of 240 mg/100 ml or more
CPT/HCPCS: 36415; 80053; 80320; 83690; 84484; 85025; 99284; Q0162; G0480

== ENCOUNTER 2019-08-28 00:12 | Emergency (ER) | payer MEDICAID ==
[~2019-08-28] VITALS: Ht 182.9 cm; Wt 100.0 kg
[2019-08-28 00:30] VITALS: BP 174/98
== END 2019-08-28 01:07 | disposition home or self-care (01) ==
LOC: ER 00:12
DX: F10.129 Alcohol abuse with intoxication, unspecified (principal); R10.9 Unspecified abdominal pain; I10 Essential (primary) hypertension; Y90.9 Presence of alcohol in blood, level not specified; Z79.899 Other long term (current) drug therapy
CPT/HCPCS: 99283

== ENCOUNTER 2019-08-28 02:48 | Emergency (ER) | payer MEDICAID ==
[~2019-08-28] VITALS: Ht 182.9 cm; Wt 100.0 kg
[2019-08-28 03:02] VITALS: BP 143/87
== END 2019-08-28 03:48 | disposition left against medical advice (07) ==
LOC: ER 02:48
DX: F10.129 Alcohol abuse with intoxication, unspecified (principal); Y90.9 Presence of alcohol in blood, level not specified; Z53.21 Procedure and treatment not carried out due to patient leaving prior to being seen by health care provider

== ENCOUNTER 2019-09-04 18:52 | Emergency (ER) | payer MEDICAID ==
[~2019-09-04] VITALS: Ht 177.8 cm; Wt 80.0 kg
[2019-09-04 19:05] VITALS: BP 148/88
== END 2019-09-04 21:27 | disposition left against medical advice (07) ==
LOC: ER 18:52
DX: R10.9 Unspecified abdominal pain (principal); Z53.21 Procedure and treatment not carried out due to patient leaving prior to being seen by health care provider

== ENCOUNTER 2019-09-05 21:33 | Emergency (ER) | payer MEDICAID ==
[2019-09-05] MEDS ORDERED: SODIUM CHLORIDE 0.9% 1,000 ML IV ONE (23:07)
[2019-09-05] MEDS ORDERED: VISCOUS LIDOCAINE 2% 15 ML UDC PO STA (23:07)
[2019-09-05] MEDS ORDERED: FAMOTIDINE 20MG/2ML VIAL IV STA (23:07)
[2019-09-05] MEDS ORDERED: MAGNESIUM/ALUMINUM HYDROXIDE/SIMETHICONE 30ML UDC PO STA (23:07)
[2019-09-05] MEDS ORDERED: ONDANSETRON HCL 4MG/2ML INJ IV STA (23:07)
[2019-09-06] LABS: BASOPHILS % 0.8 % (0.0-2.0); CHLORIDE 106 mEq/L (98-107); HEMATOCRIT. 43.9 % (42.0-52.0); HEMOGLOBIN. 14.7 g/dL (14.0-18.0); LYMPHOCYTES % 38.5 % (20.0-50.0); MEAN CORPUSCULAR HEMOGLOBIN 32.1 pg (28.0-32.0); MEAN CORPUSCULAR VOLUME 95.9 fL (80.0-94.0); MEAN PLATELET VOLUME 7.8 fl (7.4-10.4); MONOCYTES % 9.7 % (2.0-8.0); PLATELET 217 x1000/uL (130-400); RED BLOOD CELL COUNT 4.58 mill/uL (4.7-6.1); RED CELL DISTRIBUTION WIDTH 16.2 % (11.6-14.6)
[2019-09-06] MEDS ORDERED: IOHEXOL-300 100 ML BOTTLE ONE (02:44)
[2019-09-06] MEDS ORDERED: KETOROLAC 30MG/ML VIAL IM ONE (07:45)
[2019-09-06 08:00] VITALS: BP 130/80
[2019-09-06 09:40] LABS: CLARITY URINE CLEAR (CLEAR); COLOR URINE YELLOW (YELLOW); KETONES URINE NEGATIVE (NEGATIVE); LEUKOCYTE ESTERASE URINE NEGATIVE (NEGATIVE); NITRITE URINE NEGATIVE (NEGATIVE); OCCULT BLOOD URINE NEGATIVE (NEGATIVE); PH URINE 5.5 (4.5-8.0); PROTEIN URINE NEGATIVE (NEGATIVE); UROBILINOGEN URINE 0.2 E.U./dL (0.2-1.0)
[2019-09-06 09:44] LABS: SPECIFIC GRAVITY URINE 1.062 (1.005-1.030)
== END 2019-09-06 10:10 | disposition home or self-care (01) ==
LOC: ER 21:33
DX: F10.129 Alcohol abuse with intoxication, unspecified (principal); F17.290 Nicotine dependence, other tobacco product, uncomplicated; R11.2 Nausea with vomiting, unspecified; I10 Essential (primary) hypertension; F31.9 Bipolar disorder, unspecified; Y90.8 Blood alcohol level of 240 mg/100 ml or more; Z79.899 Other long term (current) drug therapy
CPT/HCPCS: 36415; 74177; 80053; 80320; 81003; 83690; 85025; 96361; 96372; 96374; 96375; 99285; 99406; J1885; J2405; J3490; J7030; Q9967; G0480

== ENCOUNTER 2019-09-12 21:19 | Emergency (ER) | payer MEDICAID ==
[~2019-09-12] VITALS: Ht 180.3 cm; Wt 85.0 kg
[2019-09-12] MEDS ORDERED: ONDANSETRON HCL 4MG/2ML INJ IV STA (22:37)
[2019-09-12 23:30] LABS: CHLORIDE 114 mEq/L (98-107)
[2019-09-12 23:38] LABS: BASOPHILS % 1.1 % (0.0-2.0); HEMATOCRIT. 39.7 % (42.0-52.0); HEMOGLOBIN. 13.3 g/dL (14.0-18.0); LYMPHOCYTES % 38.4 % (20.0-50.0); MEAN CORPUSCULAR HEMOGLOBIN 32.6 pg (28.0-32.0); MEAN CORPUSCULAR VOLUME 97.6 fL (80.0-94.0); MONOCYTES % 13.3 % (2.0-8.0); NEUTROPHILS % 46.2 % (40.0-76.0); PLATELET 195 x1000/uL (130-400); RED BLOOD CELL COUNT 4.07 mill/uL (4.7-6.1); RED CELL DISTRIBUTION WIDTH 16.3 % (11.6-14.6)
[2019-09-12 23:48] LABS: ETHANOL BLOOD 411 mg/dL
[2019-09-13 07:49] VITALS: BP 122/75
== END 2019-09-13 08:37 | disposition home or self-care (01) ==
LOC: ER 21:19
DX: F10.229 Alcohol dependence with intoxication, unspecified (principal); Y90.0 Blood alcohol level of less than 20 mg/100 ml; F20.9 Schizophrenia, unspecified; F31.9 Bipolar disorder, unspecified; I10 Essential (primary) hypertension; Z79.899 Other long term (current) drug therapy
CPT/HCPCS: 36415; 80053; 80320; 83690; 84484; 85025; 93005; 96374; 99285; J2405; G0480

== ENCOUNTER 2019-10-10 20:44 | Emergency (ER) | payer MEDICAID ==
[~2019-10-10] VITALS: Ht 182.9 cm; Wt 195.0 kg
[2019-10-10] MEDS ORDERED: SODIUM CHLORIDE 0.9% 1,000 ML IV ONE (22:26)
[2019-10-10] MEDS ORDERED: HALOPERIDOL LACTATE 5MG/ML VIAL IM ONE (23:30)
[2019-10-11 00:10] LABS: CLARITY URINE CLEAR (CLEAR); COLOR URINE YELLOW (YELLOW); KETONES URINE TRACE (NEGATIVE); LEUKOCYTE ESTERASE URINE NEGATIVE (NEGATIVE); NITRITE URINE NEGATIVE (NEGATIVE); OCCULT BLOOD URINE NEGATIVE (NEGATIVE); PROTEIN URINE TRACE (NEGATIVE); SPECIFIC GRAVITY URINE 1.026 (1.005-1.030); UROBILINOGEN URINE 0.2 E.U./dL (0.2-1.0)
[2019-10-11 00:34] LABS: *AMPHETAMINES SCREEN URINE NEGATIVE (NEGATIVE); *BARBITURATES SCREEN URINE NEGATIVE (NEGATIVE); *BENZODIAZEPINES SCREEN URINE NEGATIVE (NEGATIVE); *COCAINE SCREEN URINE NEGATIVE (NEGATIVE); METHADONE URINE SCREEN NEGATIVE (NEGATIVE); OPIATES URINE SCREEN NEGATIVE (NEGATIVE)
[2019-10-11 00:35] LABS: CANNABINOID URINE SCREEN NEGATIVE (NEGATIVE); PHENCYCLIDINE URINE SCREEN NEGATIVE (NEGATIVE)
[2019-10-11 00:37] LABS: BASOPHILS % 0.3 % (0.0-2.0); EOSINOPHILS % 1.3 % (0.0-5.0); HEMATOCRIT. 39.5 % (42.0-52.0); HEMOGLOBIN. 13.2 g/dL (14.0-18.0); LYMPHOCYTES % 54.8 % (20.0-50.0); MEAN CORPUSCULAR HEMOGLOBIN 31.8 pg (28.0-32.0); MEAN CORPUSCULAR VOLUME 95.2 fL (80.0-94.0); MEAN PLATELET VOLUME 8.2 fl (7.4-10.4); MONOCYTES % 8.2 % (2.0-8.0); NEUTROPHILS % 35.4 % (40.0-76.0); PLATELET 235 x1000/uL (130-400); RED BLOOD CELL COUNT 4.15 mill/uL (4.7-6.1); RED CELL DISTRIBUTION WIDTH 15.1 % (11.6-14.6)
[2019-10-11 00:41] LABS: CHLORIDE 115 mEq/L (98-107); PROTHROMBIN TIME 10.8 sec (9.6-11.0)
[2019-10-11 00:59] LABS: ETHANOL BLOOD 331 mg/dL
[2019-10-11 06:46] VITALS: BP 118/61
== END 2019-10-11 06:49 | disposition home or self-care (01) ==
LOC: ER 20:44
DX: F10.229 Alcohol dependence with intoxication, unspecified (principal); Y90.8 Blood alcohol level of 240 mg/100 ml or more; F31.9 Bipolar disorder, unspecified; F20.9 Schizophrenia, unspecified; Z79.899 Other long term (current) drug therapy
CPT/HCPCS: 36415; 80053; 80305; 80320; 81003; 83690; 84484; 85025; 85610; 93005; 99285; J7030; G0480

== ENCOUNTER 2019-10-23 19:51 | Emergency (ER) | payer MEDICAID ==
[~2019-10-23] VITALS: Ht 182.9 cm; Wt 93.0 kg
[2019-10-23 20:06] VITALS: BP 151/66
== END 2019-10-23 20:22 | disposition left against medical advice (07) ==
LOC: ER 19:51
DX: R10.9 Unspecified abdominal pain (principal); Z53.21 Procedure and treatment not carried out due to patient leaving prior to being seen by health care provider

== ENCOUNTER 2020-01-28 11:53 | Emergency (ER) | payer MEDICAID ==
[~2020-01-28] VITALS: Ht 180.3 cm; Wt 91.0 kg
[2020-01-28 11:58] VITALS: BP 141/90
== END 2020-01-28 12:39 | disposition home or self-care (01) ==
LOC: ER 11:53
DX: F10.129 Alcohol abuse with intoxication, unspecified (principal); Y90.9 Presence of alcohol in blood, level not specified; R03.0 Elevated blood-pressure reading, without diagnosis of hypertension
CPT/HCPCS: 93005; 99283

== ENCOUNTER 2020-05-09 02:55 | Emergency (ER) | payer MEDICAID ==
[~2020-05-09] VITALS: Ht 182.9 cm; Wt 120.0 kg
[2020-05-09] MEDS ORDERED: ONDANSETRON HCL 4MG/2ML INJ IV ONE (06:15)
[2020-05-09] MEDS ORDERED: MORPHINE SULFATE 4 MG/ML CPJ (NOT FOR IM USE) IV STA (06:48)
[2020-05-09] MEDS ORDERED: SODIUM CHLORIDE 0.9% 1,000 ML IV ONE (07:00)
[2020-05-09 08:41] LABS: BASOPHILS % 0.9 % (0.0-2.0); EOSINOPHILS % 1.9 % (0.0-5.0); HEMATOCRIT. 35.5 % (42.0-52.0); HEMOGLOBIN. 11.7 g/dL (14.0-18.0); LYMPHOCYTES % 36.1 % (20.0-50.0); MEAN CORPUSCULAR HEMOGLOBIN 30.3 pg (28.0-32.0); MEAN CORPUSCULAR VOLUME 92.2 fL (80.0-94.0); MEAN PLATELET VOLUME 7.7 fl (7.4-10.4); MONOCYTES % 12.4 % (2.0-8.0); NEUTROPHILS % 48.7 % (40.0-76.0); PLATELET 254 x1000/uL (130-400); RED BLOOD CELL COUNT 3.85 mill/uL (4.7-6.1); RED CELL DISTRIBUTION WIDTH 15.4 % (11.6-14.6)
[2020-05-09 08:46] LABS: CHLORIDE 111 mEq/L (98-107)
[2020-05-09 08:49] LABS: INR 1.1; PROTHROMBIN TIME 11.3 sec (9.6-11.0)
[2020-05-09 09:15] LABS: CLARITY URINE CLEAR (CLEAR); COLOR URINE YELLOW (YELLOW); KETONES URINE TRACE (NEGATIVE); LEUKOCYTE ESTERASE URINE NEGATIVE (NEGATIVE); NITRITE URINE NEGATIVE (NEGATIVE); OCCULT BLOOD URINE NEGATIVE (NEGATIVE); PH URINE 7.5 (4.5-8.0); PROTEIN URINE 2+ (NEGATIVE); SPECIFIC GRAVITY URINE 1.023 (1.005-1.030)
[2020-05-09 10:13] VITALS: BP 150/78
== END 2020-05-09 10:11 | disposition home or self-care (01) ==
LOC: ER 02:55
DX: R10.0 Acute abdomen (principal); R11.2 Nausea with vomiting, unspecified; I10 Essential (primary) hypertension; F10.20 Alcohol dependence, uncomplicated; Y90.9 Presence of alcohol in blood, level not specified
CPT/HCPCS: 36415; 74176; 76705; 80053; 81003; 83690; 85025; 85610; 96361; 96374; 96375; 99285; J2270; J2405; J7030

== ENCOUNTER 2020-07-16 02:46 | Emergency (ER) | payer MEDICAID ==
[~2020-07-16] VITALS: Ht 177.8 cm; Wt 105.0 kg
[~2020-07-16 02:46] MED LIST changes: -THIA50TA11 MT; +THIA50TA12 MT
[2020-07-16 02:52] VITALS: BP 142/102
== END 2020-07-16 03:17 | disposition home or self-care (01) ==
LOC: ER 03:01
DX: F10.20 Alcohol dependence, uncomplicated (principal); Y90.9 Presence of alcohol in blood, level not specified; F91.8 Other conduct disorders; I10 Essential (primary) hypertension; F20.9 Schizophrenia, unspecified; Z79.899 Other long term (current) drug therapy
CPT/HCPCS: 99283

== ENCOUNTER 2020-11-08 21:46 | Emergency (ER) | payer MEDICAID ==
[~2020-11-08] VITALS: Ht 185.4 cm; Wt 95.0 kg
[2020-11-08 22:56] LABS: CHLORIDE 110 mEq/L (98-107)
[2020-11-08 22:58] LABS: BASOPHILS % 0.5 % (0.0-2.0); EOSINOPHILS % 1.1 % (0.0-5.0); HEMATOCRIT. 36.6 % (42.0-52.0); HEMOGLOBIN. 12.3 g/dL (14.0-18.0); LYMPHOCYTES % 40.4 % (20.0-50.0); MEAN CORPUSCULAR HEMOGLOBIN 30.9 pg (28.0-32.0); MEAN CORPUSCULAR VOLUME 91.6 fL (80.0-94.0); MEAN PLATELET VOLUME 7.9 fl (7.4-10.4); MONOCYTES % 8.6 % (2.0-8.0); NEUTROPHILS % 49.4 % (40.0-76.0); PLATELET 204 x1000/uL (130-400); RED CELL DISTRIBUTION WIDTH 15.5 % (11.6-14.6)
[2020-11-08 23:16] LABS: ETHANOL BLOOD 427 mg/dL
[2020-11-09 04:38] VITALS: BP 128/78
== END 2020-11-09 04:45 | disposition home or self-care (01) ==
LOC: ER 21:55
DX: F10.229 Alcohol dependence with intoxication, unspecified (principal); Y90.8 Blood alcohol level of 240 mg/100 ml or more; K70.0 Alcoholic fatty liver; E87.6 Hypokalemia; R03.0 Elevated blood-pressure reading, without diagnosis of hypertension; D64.9 Anemia, unspecified; D72.819 Decreased white blood cell count, unspecified; Z71.41 Alcohol abuse counseling and surveillance of alcoholic
CPT/HCPCS: 36415; 80048; 80076; 80320; 85025; 99285; G0480

== ENCOUNTER 2021-02-21 20:45 | Emergency (ER) | payer MEDICAID ==
[~2021-02-21] VITALS: Ht 182.9 cm; Wt 83.0 kg
[2021-02-21 20:47] VITALS: BP 150/98
== END 2021-02-21 21:50 | disposition left against medical advice (07) ==
LOC: ER 20:45
DX: R10.9 Unspecified abdominal pain (principal); Z53.21 Procedure and treatment not carried out due to patient leaving prior to being seen by health care provider
CPT/HCPCS: 93005

== ENCOUNTER 2021-02-22 00:09 | Emergency (ER) | payer MEDICAID ==
[~2021-02-22] VITALS: Ht 177.8 cm; Wt 91.0 kg
[2021-02-22 00:16] VITALS: BP 145/75
== END 2021-02-22 00:43 | disposition left against medical advice (07) ==
LOC: ER 00:09
DX: Z53.21 Procedure and treatment not carried out due to patient leaving prior to being seen by health care provider (principal)

== ENCOUNTER 2021-02-23 21:43 | Emergency (ER) | payer MEDICAID | END 2021-02-23 22:29 | disposition left against medical advice (07) | LOC: ER 21:43 | DX: Z53.21 Procedure and treatment not carried out due to patient leaving prior to being seen by health care provider (principal) ==

== ENCOUNTER 2021-06-28 01:48 | Inpatient (IN) | payer MEDICAID ==
[~2021-06-28] VITALS: Ht 188 cm; Wt 86.0 kg
[2021-06-28] MEDS ORDERED: FAMOTIDINE 20MG/2ML VIAL IV STA (02:18)
[2021-06-28] MEDS ORDERED: MAGNESIUM 2 G PREMIX 50 ML IV ONE (02:30)
[2021-06-28] MEDS ORDERED: ONDANSETRON HCL 4MG/2ML INJ IV ONE (02:30)
[2021-06-28] MEDS ORDERED: FOLIC ACID 1 MG, THIAMINE HCL 100 MG, MVI, ADULT NO.1 10 ML in DEXTROSE 5% WATER 1,000 ML IV ONE (02:30)
[2021-06-28 05:07] LABS: BASOPHILS % 0.8 % (0.0-2.0); EOSINOPHILS % 0.5 % (0.0-5.0); HEMOGLOBIN. 12.5 g/dL (14.0-18.0); LYMPHOCYTES % 43.9 % (20.0-50.0); MEAN CORPUSCULAR HEMOGLOBIN 29.6 pg (28.0-32.0); MEAN CORPUSCULAR VOLUME 89.9 fL (80.0-94.0); MEAN PLATELET VOLUME 7.2 fl (7.4-10.4); MONOCYTES % 6.2 % (2.0-8.0); NEUTROPHILS % 48.6 % (40.0-76.0); PLATELET 265 x1000/uL (130-400); RED BLOOD CELL COUNT 4.23 mill/uL (4.7-6.1)
[2021-06-28 05:19] LABS: CHLORIDE 108 mEq/L (98-107)
[2021-06-28 05:25] LABS: ETHANOL BLOOD 287 mg/dL
[2021-06-28] MEDS ORDERED: LORAZEPAM 0.5MG TABLET PO PRN (10:00)
[2021-06-28] MEDS ORDERED: ALBUTEROL 6.7GM HFA INHALER ORI PRN (10:00)
[2021-06-28] MEDS ORDERED: MAGNESIUM/ALUMINUM HYDROXIDE/SIMETHICONE 30ML UDC PO PRN (10:00)
[2021-06-28] MEDS ORDERED: HYDROCODONE/ACETAMINOPHEN 5/325MG TABLET PO PRN (10:00)
[2021-06-28] MEDS ORDERED: DOCUSATE SODIUM 100MG CAPSULE PO PRN (10:00)
[2021-06-28] MEDS ORDERED: CEFTRIAXONE 1 G PREMIX 50 ML IV SCH (10:00)
[2021-06-28] MEDS ORDERED: POTASSIUM CHLORIDE 20MEQ TABLET SR PO NR (10:00)
[2021-06-28] MEDS ORDERED: NA PHOS,M-B/NA PHOS,DI-BA ENEMA 118ML PR PRN (10:00)
[2021-06-28] MEDS ORDERED: ACETAMINOPHEN 650MG SUPP PR PRN (10:00)
[2021-06-28] MEDS ORDERED: GUAIFENESIN 200MG/10ML SUGAR FREE UDC PO PRN (10:00)
[2021-06-28] MEDS ORDERED: ONDANSETRON HCL 4MG/2ML INJ IV PRN (10:00)
[2021-06-28] MEDS ORDERED: CEFTRIAXONE SODIUM 1 G/VIAL ONE (10:54)
[2021-06-28 11:00] LABS: BG BASE EXCESS 1.8 mmol/L (-2.0-2.0); BG CARBOXYHEMOGLOBIN 2.1 % (0.5-1.5); BG DEOXYHEMOGLOBIN 1.8 % (0.0-5.0); BG HCO3 ACT 25.9 mmol/L (22.0-26.0); BG METHEMOGLOBIN 0.3 % (0.0-1.5); BG OXYGEN SATURATION 98.2 % (92.0-98.5); BG OXYHEMOGLOBIN 95.8 % (94.0-97.0); BG PCO2 38.6 mmHg (35.0-45.0); BG PH 7.444 (7.350-7.450); BG PO2 110.9 mmHg (75.0-100.0); BG SAMPLE SITE RIGHT RADIAL; BG TOTAL HEMOGLOBIN 12.8 g/dL (12.0-18.0); BG VENT MODE ROOM AIR
[2021-06-28] MEDS: AZITHROMYCIN 500 MG in DEXT 5% WATER 250 ML IV SCH (11:10)
[2021-06-28] MEDS: ACETAMINOPHEN 325MG TABLET PO PRN ×2 (11:15→17:42)
[2021-06-28] MEDS: DEXT 5%/0.45% NACL 1000ML 1,000 ML IV SCH ×2 (11:17→21:51)
[2021-06-28] MEDS: ENOXAPARIN 40MG/0.4ML SYR SUBCUT SCH (11:17)
[2021-06-28 11:38] LABS: CLARITY URINE CLEAR (CLEAR); COLOR URINE YELLOW (YELLOW); KETONES URINE NEGATIVE (NEGATIVE); LEUKOCYTE ESTERASE URINE NEGATIVE (NEGATIVE); NITRITE URINE NEGATIVE (NEGATIVE); OCCULT BLOOD URINE NEGATIVE (NEGATIVE); PROTEIN URINE NEGATIVE (NEGATIVE); SPECIFIC GRAVITY URINE 1.008 (1.005-1.030); UROBILINOGEN URINE 0.2 E.U./dL (0.2-1.0)
[2021-06-28] MEDS: CEFTRIAXONE 1,000 MG in DEXTROSE 5% WATER 50 ML IV SCH (12:00)
[2021-06-28 12:33] LABS: *AMPHETAMINES SCREEN URINE NEGATIVE (NEGATIVE); *BARBITURATES SCREEN URINE NEGATIVE (NEGATIVE); *BENZODIAZEPINES SCREEN URINE NEGATIVE (NEGATIVE); *COCAINE SCREEN URINE NEGATIVE (NEGATIVE)
[2021-06-28 12:34] LABS: CANNABINOID URINE SCREEN NEGATIVE (NEGATIVE); PHENCYCLIDINE URINE SCREEN NEGATIVE (NEGATIVE)
[2021-06-28 12:36] LABS: METHADONE URINE SCREEN NEGATIVE (NEGATIVE)
[2021-06-28 12:37] LABS: OPIATES URINE SCREEN NEGATIVE (NEGATIVE)
[2021-06-28 13:23] LABS: PROTHROMBIN TIME 11.2 sec (9.6-11.0)
[2021-06-28 13:24] LABS: C REACTIVE PROTEIN QUANT 0.9 mg/L (0.0-3.0)
[2021-06-28 13:28] LABS: CREATINE KINASE 750 IU/L (39-308)
[2021-06-28 14:00] VITALS: BP 144/87
[2021-06-28] MEDS ORDERED: LORAZEPAM 2MG/ML CPJ IV PRN (15:00)
[2021-06-28 16:00] VITALS: BP 148/78
[2021-06-28 20:00] VITALS: BP 151/95
[2021-06-28] MEDS: FAMOTIDINE 20MG TABLET PO SCH (21:40)
[2021-06-28] MEDS: CHLORDIAZEPOXIDE 25MG CAPSULE PO SCH (21:40)
[2021-06-28] MEDS: MORPHINE SULFATE 2 MG/ML CPJ (NOT FOR IM USE) IV PRN (21:50)
[2021-06-29] VITALS: BP 166/95
[2021-06-29 01:19] LABS: CREATINE KINASE 717 IU/L (39-308)
[2021-06-29 01:20] LABS: CREATINE KINASE MB FRACTION 3.4 ng/mL (0.5-3.6)
[2021-06-29 04:00] VITALS: BP 156/93
[2021-06-29] MEDS: CHLORDIAZEPOXIDE 25MG CAPSULE PO SCH ×3 (06:15→21:49)
[2021-06-29 08:00] VITALS: BP 147/88
[2021-06-29 09:03] LABS: BASOPHILS % 0.7 % (0.0-2.0); HEMOGLOBIN. 12.8 g/dL (14.0-18.0); MEAN CORPUSCULAR HEMOGLOBIN 29.8 pg (28.0-32.0); MEAN CORPUSCULAR VOLUME 88.2 fL (80.0-94.0); MONOCYTES % 14.3 % (2.0-8.0); PLATELET 248 x1000/uL (130-400); RED BLOOD CELL COUNT 4.31 mill/uL (4.7-6.1); RED CELL DISTRIBUTION WIDTH 19.2 % (11.6-14.6)
[2021-06-29 09:28] LABS: CHLORIDE 102 mEq/L (98-107)
[2021-06-29] MEDS: AZITHROMYCIN 500 MG in DEXT 5% WATER 250 ML IV SCH (09:38)
[2021-06-29] MEDS: MVI, ADULT NO.1 10 ML, FOLIC ACID 1 MG, THIAMINE HCL 100 MG in DEXT 5%/0.45% NACL 1000M... IV SCH (09:38)
[2021-06-29] MEDS: ENOXAPARIN 40MG/0.4ML SYR SUBCUT SCH (09:38)
[2021-06-29 09:40] LABS: LDL CHOLESTEROL 103 mg/dL (5-100)
[2021-06-29 09:43] LABS: HDL CHOLESTEROL 95 mg/dL (40-59)
[2021-06-29] MEDS: MORPHINE SULFATE 2 MG/ML CPJ (NOT FOR IM USE) IV PRN ×2 (10:53→20:07)
[2021-06-29] MEDS: CEFTRIAXONE 1,000 MG in DEXTROSE 5% WATER 50 ML IV SCH (10:53)
[2021-06-29] MEDS ORDERED: POTASSIUM CHLORIDE 20MEQ TABLET SR PO NR (11:00)
[2021-06-29] MEDS ORDERED: NALOXONE HCL 0.4MG/ML VIAL IV PRN (11:15)
[2021-06-29 12:00] VITALS: BP 151/94
[2021-06-29] MEDS: DEXT 5%/0.45% NACL 1000ML 1,000 ML IV SCH (13:20)
[2021-06-29 16:00] VITALS: BP 125/79
[2021-06-29 20:00] VITALS: BP 147/113
[2021-06-29] MEDS: ACETAMINOPHEN 325MG TABLET PO PRN (20:07)
[2021-06-29] MEDS: FAMOTIDINE 20MG TABLET PO SCH (20:08)
[2021-06-29] MEDS ORDERED: MAGNESIUM/ALUMINUM HYDROXIDE/SIMETHICONE 30ML UDC PO PRN (22:15)
[2021-06-30] MEDS: DEXT 5%/0.45% NACL 1000ML 1,000 ML IV SCH (03:00)
[2021-06-30 04:00] VITALS: BP 161/92
[2021-06-30] MEDS: CLONIDINE 0.1MG TABLET PO PRN (05:12)
[2021-06-30] MEDS: CHLORDIAZEPOXIDE 25MG CAPSULE PO SCH ×3 (05:16→21:13)
[2021-06-30] MEDS: MORPHINE SULFATE 2 MG/ML CPJ (NOT FOR IM USE) IV PRN ×2 (05:16→18:43)
[2021-06-30 08:00] VITALS: BP 162/102
[2021-06-30] MEDS: ENOXAPARIN 40MG/0.4ML SYR SUBCUT SCH (08:57)
[2021-06-30] MEDS: MVI, ADULT NO.1 10 ML, FOLIC ACID 1 MG, THIAMINE HCL 100 MG in DEXT 5%/0.45% NACL 1000M... IV SCH (09:30)
[2021-06-30] MEDS: CEFTRIAXONE 1,000 MG in DEXTROSE 5% WATER 50 ML IV SCH (11:43)
[2021-06-30] MEDS: AZITHROMYCIN 500 MG in DEXT 5% WATER 250 ML IV SCH (11:43)
[2021-06-30 12:00] VITALS: BP_SYST 122; BP_SYST 124; BP_DIAS 64; BP_DIAS 65
[2021-06-30 16:00] VITALS: BP 122/64
[2021-06-30 16:52] LABS: BASOPHILS % 0.7 % (0.0-2.0); EOSINOPHILS % 3.5 % (0.0-5.0); HEMATOCRIT. 41.9 % (42.0-52.0); HEMOGLOBIN. 13.3 g/dL (14.0-18.0); LYMPHOCYTES % 22.2 % (20.0-50.0); MEAN CORPUSCULAR VOLUME 91.4 fL (80.0-94.0); MEAN PLATELET VOLUME 8.3 fl (7.4-10.4); MONOCYTES % 10.9 % (2.0-8.0); NEUTROPHILS % 62.7 % (40.0-76.0); PLATELET 223 x1000/uL (130-400); RED BLOOD CELL COUNT 4.59 mill/uL (4.7-6.1); RED CELL DISTRIBUTION WIDTH 18.9 % (11.6-14.6)
[2021-06-30 17:03] LABS: CHLORIDE 106 mEq/L (98-107)
[2021-06-30] MEDS: DIPHENHYDRAMINE 50MG/ML VIAL IV PRN (21:13)
[2021-06-30] MEDS: FAMOTIDINE 20MG/2ML VIAL IV SCH (21:13)
[2021-07-01] VITALS: BP 146/83
[2021-07-01 04:00] VITALS: BP 149/99
[2021-07-01] MEDS: MORPHINE SULFATE 2 MG/ML CPJ (NOT FOR IM USE) IV PRN ×2 (05:53→22:22)
[2021-07-01] MEDS: CHLORDIAZEPOXIDE 25MG CAPSULE PO SCH ×3 (05:53→21:29)
[2021-07-01 08:00] VITALS: BP 164/95
[2021-07-01 08:22] LABS: CHLORIDE 106 mEq/L (98-107)
[2021-07-01 08:30] LABS: BASOPHILS % 0.6 % (0.0-2.0); EOSINOPHILS % 3.5 % (0.0-5.0); HEMATOCRIT. 37.4 % (42.0-52.0); HEMOGLOBIN. 12.6 g/dL (14.0-18.0); LYMPHOCYTES % 24.4 % (20.0-50.0); MEAN CORPUSCULAR HEMOGLOBIN 30.2 pg (28.0-32.0); MEAN CORPUSCULAR VOLUME 89.9 fL (80.0-94.0); MEAN PLATELET VOLUME 8.7 fl (7.4-10.4); MONOCYTES % 13.1 % (2.0-8.0); NEUTROPHILS % 58.4 % (40.0-76.0); PLATELET 208 x1000/uL (130-400); RED BLOOD CELL COUNT 4.17 mill/uL (4.7-6.1); RED CELL DISTRIBUTION WIDTH 19.8 % (11.6-14.6)
[2021-07-01] MEDS: ENOXAPARIN 40MG/0.4ML SYR SUBCUT SCH (09:05)
[2021-07-01] MEDS: AZITHROMYCIN 500 MG in DEXT 5% WATER 250 ML IV SCH (09:05)
[2021-07-01] MEDS: MVI, ADULT NO.1 10 ML, FOLIC ACID 1 MG, THIAMINE HCL 100 MG in DEXT 5%/0.45% NACL 1000M... IV SCH (09:59)
[2021-07-01 12:00] VITALS: BP 131/92
[2021-07-01] MEDS: FOLIC ACID 1MG TABLET PO SCH (12:35)
[2021-07-01] MEDS: MULTIVITAMINS,THER W-MINERALS TABLET PO SCH (12:35)
[2021-07-01] MEDS: QUETIAPINE FUMARATE 50MG TABLET PO SCH (12:35)
[2021-07-01] MEDS: SERTRALINE HCL 100MG TABLET PO SCH (12:36)
[2021-07-01] MEDS: THIAMINE HCL 100MG TABLET PO SCH (12:36)
[2021-07-01 16:00] VITALS: BP 122/77
[2021-07-01 20:00] VITALS: BP 152/93
[2021-07-01] MEDS: FAMOTIDINE 20MG/2ML VIAL IV SCH (22:22)
[2021-07-02] VITALS: BP 148/92
[2021-07-02 04:00] VITALS: BP 142/90
[2021-07-02] MEDS: CHLORDIAZEPOXIDE 25MG CAPSULE PO SCH ×3 (05:02→20:50)
[2021-07-02 07:50] LABS: BASOPHILS % 0.7 % (0.0-2.0); EOSINOPHILS % 3.5 % (0.0-5.0); HEMATOCRIT. 38.4 % (42.0-52.0); HEMOGLOBIN. 12.3 g/dL (14.0-18.0); LYMPHOCYTES % 32.8 % (20.0-50.0); MEAN CORPUSCULAR HEMOGLOBIN 29.3 pg (28.0-32.0); MEAN PLATELET VOLUME 8.3 fl (7.4-10.4); MONOCYTES % 13.4 % (2.0-8.0); NEUTROPHILS % 49.6 % (40.0-76.0); PLATELET 185 x1000/uL (130-400); RED BLOOD CELL COUNT 4.22 mill/uL (4.7-6.1); RED CELL DISTRIBUTION WIDTH 19.7 % (11.6-14.6)
[2021-07-02 07:57] LABS: CHLORIDE 107 mEq/L (98-107)
[2021-07-02 08:00] VITALS: BP 144/88
[2021-07-02] MEDS: SERTRALINE HCL 100MG TABLET PO SCH (08:50)
[2021-07-02] MEDS: FOLIC ACID 1MG TABLET PO SCH (08:50)
[2021-07-02] MEDS: QUETIAPINE FUMARATE 50MG TABLET PO SCH (08:50)
[2021-07-02] MEDS: ENOXAPARIN 40MG/0.4ML SYR SUBCUT SCH (08:50)
[2021-07-02] MEDS: MULTIVITAMINS,THER W-MINERALS TABLET PO SCH (08:50)
[2021-07-02] MEDS: THIAMINE HCL 100MG TABLET PO SCH (08:50)
[2021-07-02 12:00] VITALS: BP 122/76
[2021-07-02 16:00] VITALS: BP 138/81
[2021-07-02] MEDS: MORPHINE SULFATE 2 MG/ML CPJ (NOT FOR IM USE) IV PRN (18:43)
[2021-07-02 20:00] VITALS: BP 156/75
[2021-07-02] MEDS: FAMOTIDINE 20MG TABLET PO SCH (20:48)
[2021-07-03] VITALS: BP 171/81
[2021-07-03] MEDS: CLONIDINE 0.1MG TABLET PO PRN (00:34)
[2021-07-03 04:00] VITALS: BP 158/92
[2021-07-03] MEDS: CHLORDIAZEPOXIDE 25MG CAPSULE PO SCH ×3 (05:55→21:13)
[2021-07-03 06:12] LABS: HEMATOCRIT. 37.9 % (42.0-52.0); HEMOGLOBIN. 12.8 g/dL (14.0-18.0); MEAN CORPUSCULAR HEMOGLOBIN 30.8 pg (28.0-32.0); MEAN CORPUSCULAR VOLUME 91.2 fL (80.0-94.0); MEAN PLATELET VOLUME 8.9 fl (7.4-10.4); PLATELET 151 x1000/uL (130-400); RED BLOOD CELL COUNT 4.15 mill/uL (4.7-6.1); RED CELL DISTRIBUTION WIDTH 18.9 % (11.6-14.6)
[2021-07-03 06:14] LABS: CHLORIDE 110 mEq/L (98-107)
[2021-07-03 08:00] VITALS: BP 120/77
[2021-07-03] MEDS: SERTRALINE HCL 100MG TABLET PO SCH (08:23)
[2021-07-03] MEDS: THIAMINE HCL 100MG TABLET PO SCH (08:23)
[2021-07-03] MEDS: MORPHINE SULFATE 2 MG/ML CPJ (NOT FOR IM USE) IV PRN (08:23)
[2021-07-03] MEDS: MULTIVITAMINS,THER W-MINERALS TABLET PO SCH (08:23)
[2021-07-03] MEDS: ENOXAPARIN 40MG/0.4ML SYR SUBCUT SCH (08:25)
[2021-07-03] MEDS: FOLIC ACID 1MG TABLET PO SCH (11:11)
[2021-07-03] MEDS: QUETIAPINE FUMARATE 50MG TABLET PO SCH (11:11)
[2021-07-03 12:00] VITALS: BP 138/66
[2021-07-03 12:06] LABS: PLATELET ESTIMATE NORMAL
[2021-07-03 16:00] VITALS: BP 156/89
[2021-07-03 20:00] VITALS: BP 123/83
[2021-07-03] MEDS ORDERED: QUETIAPINE FUMARATE 50MG TABLET PO SCH (21:00)
[2021-07-03] MEDS: FAMOTIDINE 20MG TABLET PO SCH (21:13)
[2021-07-03] MEDS: DIPHENHYDRAMINE 50MG/ML VIAL IV PRN (22:44)
[2021-07-04] VITALS: BP 143/89
[2021-07-04 04:00] VITALS: BP 155/93
[2021-07-04 08:00] VITALS: BP 140/76
[2021-07-04] MEDS: FOLIC ACID 1MG TABLET PO SCH (08:23)
[2021-07-04] MEDS: QUETIAPINE FUMARATE 50MG TABLET PO SCH (08:23)
[2021-07-04] MEDS: SERTRALINE HCL 100MG TABLET PO SCH (08:23)
[2021-07-04] MEDS: THIAMINE HCL 100MG TABLET PO SCH (08:23)
[2021-07-04] MEDS: MULTIVITAMINS,THER W-MINERALS TABLET PO SCH (08:23)
[2021-07-04] MEDS: ENOXAPARIN 40MG/0.4ML SYR SUBCUT SCH (08:23)
[2021-07-04 12:00] VITALS: BP 129/79
[2021-07-04] MEDS ORDERED: CLON0.1T MT (13:38)
[2021-07-04] MEDS ORDERED: FOLI-43 MT (13:38)
[2021-07-04] MEDS ORDERED: QUET100T MT (13:38)
[2021-07-04] MEDS ORDERED: THIA50TA12 MT (13:38)
[2021-07-04] MEDS ORDERED: MULT-1146 MT (13:38)
[2021-07-04] MEDS ORDERED: AMLO10TA4 MT (13:38)
[2021-07-04] MEDS ORDERED: FAMO-135 PO (13:38)
[2021-07-04 15:02] VITALS: BP 129/79
[2021-07-04 16:00] VITALS: BP 152/86
[2021-07-04] MEDS ORDERED: QUETIAPINE FUMARATE 50MG TABLET PO SCH (21:00)
== END 2021-07-04 16:58 | disposition home or self-care (01) | DRG 137 ==
LOC: ER 01:48 → MICUSO 05:46 → EDBEDREQSVC 07:01 → EDBEDREQTM 07:01 → 7WST 14:46
PROVIDERS: ADMIT Internal Medicine; ATTEND Internal Medicine
DX: U07.1 COVID-19 (principal); F10.231 Alcohol dependence with withdrawal delirium; E87.2 Acidosis; M62.82 Rhabdomyolysis; D64.9 Anemia, unspecified; E87.6 Hypokalemia; D72.810 Lymphocytopenia; F32.A Depression, unspecified; E86.0 Dehydration; I10 Essential (primary) hypertension; F19.10 Other psychoactive substance abuse, uncomplicated; Y90.8 Blood alcohol level of 240 mg/100 ml or more; Z79.899 Other long term (current) drug therapy; Z71.51 Drug abuse counseling and surveillance of drug abuser
CPT/HCPCS: 36415; 36600; 71045; 74176; 80048; 80053; 80061; 80305; 80307; 80320; 80329; 81003; 82375; 82550; 82553; 82728; 82805; 83605; 83615; 84145; 84443; 84484; 85025; 85379; 86140; 86850; 86870; 86900; 87426; 93005; 93970; 97162; 99285; C1893; J0456; J0696; J1200; J1650; J2270; J2405; J3411; J3475; J3490; J7060; J7070; G0480

== ENCOUNTER 2022-06-03 22:19 | Emergency (ER) | payer MEDICAID ==
[~2022-06-03] VITALS: Ht 185.4 cm; Wt 91.0 kg
[~2022-06-03 22:19] MED LIST changes: +AMLO10TA4 MT; +CLON0.1T MT; +MULT-1146 MT; +QUET100T MT; -QUET300T2 PO
[2022-06-04 01:21] VITALS: BP 134/61
== END 2022-06-04 01:58 | disposition home or self-care (01) ==
LOC: ER 22:19
DX: F10.129 Alcohol abuse with intoxication, unspecified (principal); Y90.9 Presence of alcohol in blood, level not specified; I10 Essential (primary) hypertension; M79.18 Myalgia, other site
CPT/HCPCS: 99283

== ENCOUNTER 2022-06-04 15:20 | Emergency (ER) | payer MEDICAID ==
[~2022-06-04] VITALS: Ht 180.3 cm; Wt 79.0 kg
[2022-06-04 15:48] VITALS: BP 118/67
== END 2022-06-04 19:07 | disposition home or self-care (01) ==
LOC: ER 15:20
DX: F10.229 Alcohol dependence with intoxication, unspecified (principal); Y90.8 Blood alcohol level of 240 mg/100 ml or more; I10 Essential (primary) hypertension
CPT/HCPCS: 99283

== ENCOUNTER 2022-06-06 15:32 | Emergency (ER) | payer MEDICAID ==
[~2022-06-06] VITALS: Ht 177.8 cm; Wt 77.0 kg
[2022-06-06 15:37] VITALS: BP 190/90
== END 2022-06-06 16:47 | disposition left against medical advice (07) ==
LOC: ER 15:32
DX: F10.129 Alcohol abuse with intoxication, unspecified (principal); Y90.9 Presence of alcohol in blood, level not specified; I10 Essential (primary) hypertension; E11.9 Type 2 diabetes mellitus without complications; F14.90 Cocaine use, unspecified, uncomplicated
CPT/HCPCS: 99283

== ENCOUNTER 2022-06-06 17:19 | Emergency (ER) | payer MEDICAID ==
[~2022-06-06] VITALS: Ht 182.9 cm; Wt 98.0 kg
[2022-06-06] MEDS ORDERED: HYDRALAZINE 20MG/ML VIAL IV ONE (18:45)
[2022-06-06] MEDS ORDERED: ONDANSETRON HCL 4MG TABLET PO ONE (21:00)
[2022-06-06] MEDS ORDERED: ONDANSETRON HCL 4MG TABLET PO NR (23:30)
[2022-06-07 00:25] LABS: CLARITY URINE CLEAR (CLEAR); COLOR URINE DARK YELLOW (YELLOW); KETONES URINE 3+ (NEGATIVE); LEUKOCYTE ESTERASE URINE TRACE (NEGATIVE); NITRITE URINE NEGATIVE (NEGATIVE); OCCULT BLOOD URINE NEGATIVE (NEGATIVE); PROTEIN URINE 1+ (NEGATIVE); SPECIFIC GRAVITY URINE 1.036 (1.005-1.030)
[2022-06-07 00:48] LABS: BASOPHILS % 0.5 % (0.0-2.0); EOSINOPHILS % 0.1 % (0.0-5.0); HEMATOCRIT. 39.7 % (42.0-52.0); HEMOGLOBIN. 13.4 g/dL (14.0-18.0); LYMPHOCYTES % 16.6 % (20.0-50.0); MEAN CORPUSCULAR HEMOGLOBIN 30.4 pg (28.0-32.0); MEAN CORPUSCULAR VOLUME 90.3 fL (80.0-94.0); MEAN PLATELET VOLUME 7.8 fl (7.4-10.4); MONOCYTES % 11.9 % (2.0-8.0); NEUTROPHILS % 70.9 % (40.0-76.0); PLATELET 219 x1000/uL (130-400); RED BLOOD CELL COUNT 4.39 mill/uL (4.7-6.1); RED CELL DISTRIBUTION WIDTH 17.8 % (11.6-14.6)
[2022-06-07 00:53] LABS: CHLORIDE 100 mEq/L (98-107)
[2022-06-07] MEDS ORDERED: POTASSIUM CHLORIDE 20MEQ/PACKET PO NR (01:30)
[2022-06-07 01:45] LABS: PROTHROMBIN TIME 11.2 sec (9.6-11.0)
[2022-06-07 05:46] LABS: *AMPHETAMINES SCREEN URINE NEGATIVE (NEGATIVE); *BARBITURATES SCREEN URINE NEGATIVE (NEGATIVE); *BENZODIAZEPINES SCREEN URINE PRESUMTIVE POSITIVE (NEGATIVE); *COCAINE SCREEN URINE NEGATIVE (NEGATIVE); CANNABINOID URINE SCREEN NEGATIVE (NEGATIVE); METHADONE URINE SCREEN NEGATIVE (NEGATIVE); OPIATES URINE SCREEN NEGATIVE (NEGATIVE); PHENCYCLIDINE URINE SCREEN NEGATIVE (NEGATIVE)
[2022-06-07] MEDS ORDERED: ACETAMINOPHEN 325MG TABLET PO ONE (06:15)
[2022-06-07 08:27] LABS: ETHANOL BLOOD < 10 mg/dL
[2022-06-07 10:00] VITALS: BP 156/105
== END 2022-06-07 10:00 | disposition home or self-care (01) ==
LOC: ER 17:19
DX: F33.9 Major depressive disorder, recurrent, unspecified (principal); R45.851 Suicidal ideations; I10 Essential (primary) hypertension; R10.84 Generalized abdominal pain; E87.6 Hypokalemia; Z20.822 Contact with and (suspected) exposure to COVID-19
CPT/HCPCS: 36415; 71045; 74176; 80053; 80305; 80307; 80320; 80329; 81003; 83690; 84484; 85025; 85610; 87426; 99285; C9803; Q0162; G0480

== ENCOUNTER 2022-09-14 13:21 | Emergency (ER) | payer MEDICAID ==
[~2022-09-14] VITALS: Ht 188 cm; Wt 91.0 kg
[2022-09-14 13:27] VITALS: BP 134/72
== END 2022-09-14 18:30 | disposition home or self-care (01) ==
LOC: ER 13:21
DX: F10.129 Alcohol abuse with intoxication, unspecified (principal); E11.9 Type 2 diabetes mellitus without complications; I10 Essential (primary) hypertension; Y90.8 Blood alcohol level of 240 mg/100 ml or more
CPT/HCPCS: 36415; 80320; 99283; G0480

== ENCOUNTER 2022-09-16 05:54 | Emergency (ER) | payer MEDICAID ==
[~2022-09-16] VITALS: Ht 190.5 cm; Wt 85.0 kg
[2022-09-16 05:57] VITALS: BP 162/92
[2022-09-16 06:19] LABS: BASOPHILS % 0.9 % (0.0-2.0); EOSINOPHILS % 0.9 % (0.0-5.0); HEMATOCRIT. 39.8 % (42.0-52.0); HEMOGLOBIN. 13.2 g/dL (14.0-18.0); MEAN CORPUSCULAR HEMOGLOBIN 30.4 pg (28.0-32.0); MEAN CORPUSCULAR VOLUME 91.8 fL (80.0-94.0); MEAN PLATELET VOLUME 7.7 fl (7.4-10.4); MONOCYTES % 8.4 % (2.0-8.0); NEUTROPHILS % 58.8 % (40.0-76.0); PLATELET 159 x1000/uL (130-400); RED BLOOD CELL COUNT 4.34 mill/uL (4.7-6.1); RED CELL DISTRIBUTION WIDTH 16.7 % (11.6-14.6)
[2022-09-16 06:28] LABS: CHLORIDE 105 mEq/L (98-107)
[2022-09-16 06:35] LABS: ETHANOL BLOOD 252 mg/dL
[2022-09-16] MEDS ORDERED: MAGNESIUM/ALUMINUM HYDROXIDE/SIMETHICONE 30ML UDC PO ONE (07:45)
== END 2022-09-16 08:53 | disposition home or self-care (01) ==
LOC: ER 06:03
DX: R10.13 Epigastric pain (principal); G89.29 Other chronic pain; R11.10 Vomiting, unspecified; F10.229 Alcohol dependence with intoxication, unspecified; Y90.8 Blood alcohol level of 240 mg/100 ml or more; I10 Essential (primary) hypertension; E11.9 Type 2 diabetes mellitus without complications; F14.10 Cocaine abuse, uncomplicated
CPT/HCPCS: 36415; 80053; 80320; 85025; 99283; G0480

== ENCOUNTER 2022-10-04 01:43 | Emergency (ER) | payer MEDICAID ==
[~2022-10-04] VITALS: Ht 177.8 cm; Wt 73.0 kg
[2022-10-04] MEDS ORDERED: MAGNESIUM/ALUMINUM HYDROXIDE/SIMETHICONE 30ML UDC PO STA (02:27)
[2022-10-04] MEDS ORDERED: VISCOUS LIDOCAINE 2% 15 ML UDC PO STA (02:27)
[2022-10-04 04:01] LABS: BASOPHILS % 0.8 % (0.0-2.0); EOSINOPHILS % 0.8 % (0.0-5.0); HEMATOCRIT. 40.8 % (42.0-52.0); HEMOGLOBIN. 13.4 g/dL (14.0-18.0); LYMPHOCYTES % 25.7 % (20.0-50.0); MEAN CORPUSCULAR HEMOGLOBIN 30.3 pg (28.0-32.0); MEAN CORPUSCULAR VOLUME 92.2 fL (80.0-94.0); MEAN PLATELET VOLUME 8.1 fl (7.4-10.4); MONOCYTES % 7.1 % (2.0-8.0); NEUTROPHILS % 65.6 % (40.0-76.0); PLATELET 341 x1000/uL (130-400); RED BLOOD CELL COUNT 4.43 mill/uL (4.7-6.1); RED CELL DISTRIBUTION WIDTH 17.2 % (11.6-14.6)
[2022-10-04 04:07] LABS: CHLORIDE 112 mEq/L (98-107)
[2022-10-04 05:26] LABS: ETHANOL BLOOD 336 mg/dL
[2022-10-04] MEDS ORDERED: ONDA4TAB50 MT (05:41)
[2022-10-04] MEDS ORDERED: PROT40 MT (05:41)
[2022-10-04 08:39] VITALS: BP 115/70
== END 2022-10-04 08:41 | disposition home or self-care (01) ==
LOC: ER 01:43
DX: F10.20 Alcohol dependence, uncomplicated (principal); F14.10 Cocaine abuse, uncomplicated; I10 Essential (primary) hypertension; E11.9 Type 2 diabetes mellitus without complications; Z79.899 Other long term (current) drug therapy; Z86.59 Personal history of other mental and behavioral disorders; Y90.8 Blood alcohol level of 240 mg/100 ml or more
CPT/HCPCS: 36415; 80053; 80320; 85025; 99283; G0480